=== PATIENT | male | born 1950 | race Caucasian/White ===

== ENCOUNTER → 2017-01-23 | Outpatient (CLI) | payer OTHER ==
[~2017-01-23] MED LIST: ACET-1138 PO; ACT30 PO; ASPI81TA28 PO; CHOL100010 PO; GLC5 PO; GLC500 PO; HYDR25TA4 PO; LISI-461 PO; MAGN400C2 PO; ONDA8TAB6 PO; OXYSR10 PO; POTA10CA28 PO; PROP80TA2 PO; RXC5 PO; SIMV20TA2 PO; SNK PO
[2017-01-23 16:59] LABS: ALT/SGPT 15 U/L (12-78); AST/SGOT 12 U/L (15-37); BLOOD UREA NITROGEN 24 mg/dl (7-18); BUN/CREATININE RATIO 24.2 (10-20); CALCIUM 9.3 mg/dl (8.5-10.1); CARBON DIOXIDE 30 mmol/L (21-32); CHLORIDE 103 mmol/L (98-107); CHOLESTEROL 142 mg/dl (0-200); GLUCOSE 78 mg/dl (70-99); POTASSIUM 4.3 mmol/L (3.5-5.1); SODIUM 140 mmol/L (136-145); TRIGLYCERIDES 134 mg/dl (0-150); VERY LOW DENSITY LIPOPROT CALC 27 mg/dl
[2017-01-23 17:00] LABS: ALB/GLOB RATIO 1.3 (0.9-2); ALKALINE PHOSPHATASE 69 U/L (45-117); CHOLESTEROL/HDL RATIO 3.4; HDL CHOLESTEROL 42 mg/dl; LDL CHOLESTEROL CALCULATED 73 mg/dl
[2017-01-24 05:44] LABS: ESTIMATED AVERAGE GLUCOSE 128 mg/dl; HA1C FLAG Normal (Normal)
== END | disposition home or self-care (01) ==
LOC: C.LABBFT 11:26
PROVIDERS: ATTEND Internal Medicine
DX: E78.00 Pure hypercholesterolemia, unspecified (principal); E11.9 Type 2 diabetes mellitus without complications; E87.6 Hypokalemia

== ENCOUNTER → 2017-08-05 | Outpatient (CLI) | payer OTHER ==
[~2017-08-05] MED LIST changes: -ONDA8TAB6 PO
[2017-08-05 17:41] LABS: BLOOD UREA NITROGEN 25 mg/dl (7-18); BUN/CREATININE RATIO 22.3 (10-20); CALCIUM 9.1 mg/dl (8.5-10.1); CARBON DIOXIDE 28 mmol/L (21-32); CHLORIDE 104 mmol/L (98-107); CREATININE 1.11 mg/dl (0.60-1.40); GLUCOSE 72 mg/dl (70-99); POTASSIUM 4.4 mmol/L (3.5-5.1); SODIUM 139 mmol/L (136-145)
[2017-08-06 05:53] LABS: ESTIMATED AVERAGE GLUCOSE 140 mg/dl; HA1C FLAG Normal (Normal)
== END | disposition home or self-care (01) ==
LOC: C.LABBFT 11:25
PROVIDERS: ATTEND Internal Medicine
DX: Z00.00 Encounter for general adult medical examination without abnormal findings (principal); E11.9 Type 2 diabetes mellitus without complications; I10 Essential (primary) hypertension; E87.6 Hypokalemia

== ENCOUNTER → 2018-02-15 | Outpatient (CLI) | payer OTHER | END | disposition home or self-care (01) | LOC: C.LABBFT 07:29 | PROVIDERS: ATTEND Internal Medicine | DX: Z00.00 Encounter for general adult medical examination without abnormal findings (principal); E78.00 Pure hypercholesterolemia, unspecified ==

== ENCOUNTER 2022-07-23 09:15 | Observation (INO) ==
--- NOTE | 2022-06-19 16:12 | PAT Medication Instructions ---
Medication Instructions Date of Service June 19, 2022 Home Medications Medication Instructions Recorded glipizide 10 mg tablet, extended 10 mg PO BID #180 tabs 11/01/20 release 24 hr metformin 1,000 mg tablet 1,000 mg PO BID #180 tabs 11/01/20 tamsulosin 0.4 mg capsule (Flomax) 0.4 mg PO QPM #90 caps 10/07/21 gabapentin 100 mg capsule 300 mg PO BID #540 caps 03/24/22 atorvastatin 40 mg tablet 40 mg PO HS cholecalciferol (vitamin D3) 125 mcg (5,000 unit) tablet (Vitamin D3) 5,000 unit PO HS magnesium oxide 400 mg PO HS acetaminophen 500 mg tablet (Tylenol Extra Strength) 1,000 mg PO BID mecobalamin (vitamin B12) 1,000 mcg chewable tablet 1,000 mcg PO QAM glipizide 10 mg tablet, extended release 24 hr 10 mg PO BID metformin 1,000 mg tablet 1,000 mg PO BID empagliflozin 25 mg tablet (Jardiance) 25 mg PO QAM aspirin 81 mg tablet,delayed release 81 mg PO HS finasteride 5 mg tablet 5 mg PO QAM lisinopril 10 mg tablet 5 mg PO HS metoprolol succinate 100 mg tablet,extended release 24 hr (Toprol XL) 100 mg PO QAM torsemide 20 mg tablet 20 mg PO QAM vit A 7,160 unit-vit C 113 mg-vit E 100 [id number] tablet 1 tab PO QAM tamsulosin 0.4 mg capsule (Flomax) 0.4 mg PO QPM gabapentin 100 mg capsule 300 mg PO BID STOP 3 days before surgery empagliflozin 25 mg tablet (Jardiance) 25 mg PO QAM STOP taking 2 weeks before surgery vit A 7,160 unit-vit C 113 mg-vit E 100 [id number]-[id number]-[id number] tablet 1 tab PO QAM DO NOT take the morning of surgery acetaminophen 500 mg tablet (Tylenol Extra Strength) 1,000 mg PO BID mecobalamin (vitamin B12) 1,000 mcg chewable tablet 1,000 mcg PO QAM glipizide 10 mg tablet, extended release 24 hr 10 mg PO BID metformin 1,000 mg tablet 1,000 mg PO BID torsemide 20 mg tablet 20 mg PO QAM Take morning of surgery With a small sip of water, OTHERWISE NOTHING TO EAT OR DRINK AFTER MIDNIGHT: finasteride 5 mg tablet 5 mg PO QAM metoprolol succinate 100 mg tablet,extended release 24 hr (Toprol XL) 100 mg PO QAM gabapentin 100 mg capsule 300 mg PO BID Take evening before surgery atorvastatin 40 mg tablet 40 mg PO HS cholecalciferol (vitamin D3) 125 mcg (5,000 unit) tablet (Vitamin D3) 5,000 unit PO HS magnesium oxide 400 mg PO HS acetaminophen 500 mg tablet (Tylenol Extra Strength) 1,000 mg PO BID glipizide 10 mg tablet, extended release 24 hr 10 mg PO BID metformin 1,000 mg tablet 1,000 mg PO BID aspirin 81 mg tablet,delayed release 81 mg PO HS (unless directed otherwise by surgeon) lisinopril 10 mg tablet 5 mg PO HS tamsulosin 0.4 mg capsule (Flomax) 0.4 mg PO QPM gabapentin 100 mg capsule 300 mg PO BID Other Notes If you have any questions please call us at [phone] or [phone] or [phone] or [phone]
--- NOTE | 2022-06-26 08:02 | History & Physical Report ---
Date of Service June 26, 2022 date of surgery: 07/23/22 Procedure: Left Total Knee Arthroplasty Surgeon: Ace Caraballo Assessment & Plan (1) Arthritis of knee, left: Plan: Presents for evaluation of continued left knee pain, he has had prior prior cortisone injection as well as viscosupplementation with minimal relief. He has a history of right knee replacement in [address] Cohn. We discussed treatment options and reviewed his x-rays which show advanced DJD, narrowing medial compartment patellofemoral joint, osteophyte formation subchondral sclerosis. He would like to proceed with scheduling for a patient matched [employer] [facility] left total knee replacement at [facility]. He will need cardiac clearance as well as medical clearance. We will schedule for Iovera treatment 2 weeks prior to his knee replacement The risks and benefits have been discussed including, but not limited to, risk of infection, nerve injury, stiffness, loss of motion, failure to improve, etc. Reasonable outcomes and options of treatment were discussed. An explanation of appropriate alternatives to the procedure that may be advantageous were discussed and their risks and benefits, as well as the risks and benefits of not proceeding with treatment. I offered to answer any additional inquiries concerning the treatment involved. All the patient's questions were answered. The patient is agreeable, understanding of the treatment plan and alternatives, and wishes to proceed with the treatment plan. History of Present Illness Chief Complaint: left knee pain Primary Care Provider: Meghana Hayes MD Naveen is a 71-year-old male who presents for preop evaluation prior to left total knee replacement at [facility]. Naveen has been having pain in his knee for many years now, is now affecting his daily activities. Is difficulty walking standing for prolonged period of times using stairs. He is tried oral anti-inflammatories and Tylenol without relief. He had previous cortisone injections as well as viscosupplementation without relief. He has a history of right knee replacement by Dr. Cohn several years ago. After discussing further care and failing conservative measures he would like to proceed with left total knee replacement Allergies Allergy/AdvReac Type Severity Reaction Status Date / Time quinine Allergy Intermediate "PETECHIAE" Verified 06/18/22 09:57 Home Medications Medication Instructions Recorded Confirmed Type atorvastatin 40 mg tablet 40 mg PO HS 09/07/18 06/18/22 History cholecalciferol (vitamin D3) 125 5,000 unit PO HS 09/07/18 06/18/22 History mcg (5,000 unit) tablet (Vitamin D3) magnesium oxide 400 mg PO HS 12/05/19 06/18/22 History acetaminophen 500 mg tablet 1,000 mg PO BID 12/21/19 06/18/22 History (Tylenol Extra Strength) mecobalamin (vitamin B12) 1,000 1,000 mcg PO QAM 06/19/20 06/18/22 History mcg chewable tablet glipizide 10 mg tablet, extended 10 mg PO BID #180 tabs 11/01/20 06/18/22 Rx release 24 hr metformin 1,000 mg tablet 1,000 mg PO BID #180 tabs 11/01/20 06/18/22 Rx empagliflozin 25 mg tablet 25 mg PO QAM 04/11/21 06/18/22 History (Jardiance) aspirin 81 mg tablet,delayed 81 mg PO HS 05/15/21 06/18/22 History release finasteride 5 mg tablet 5 mg PO QAM 05/15/21 06/18/22 History lisinopril 10 mg tablet 5 mg PO HS 05/15/21 06/18/22 History metoprolol succinate 100 mg 100 mg PO QAM 05/15/21 06/18/22 History tablet,extended release 24 hr (Toprol XL) torsemide 20 mg tablet 20 mg PO QAM 05/15/21 06/18/22 History vit A 7,160 unit-vit C 113 mg-vit 1 tab PO QAM 05/15/21 06/18/22 History E 100 [id number]-[id number] tablet tamsulosin 0.4 mg capsule (Flomax) 0.4 mg PO QPM #90 caps 10/07/21 06/18/22 Rx gabapentin 100 mg capsule 300 mg PO BID #540 caps 03/24/22 06/18/22 Rx Past Med/Surg History Medical History Chronic 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 Silverman---pt states he has 2 aneurysms at this time > last checked April 10 at [facility] > 4.5cm and 4.8cm per pt report Tinnitus of both ears Type 2 diabetes mellitus NIDDM Surgical History History of AAA (abdominal aortic aneurysm) repair (2012) @ [facility] [place] 2012 History of bilateral cataract extraction x2 on both History of colonoscopy History of hernia surgery (~2011) umbilical History of tonsillectomy and adenoidectomy History of tooth extraction Status post Mohs surgery ear and neck Status post ORIF of fracture of ankle left--hardware in place Status post right knee replacement Family History Mother Diabetes Breast cancer Other No family history of adverse response to anesthesia No pertinent family history in first degree relatives Social History Smoking Status: Former smoker Second Hand Exposure: No; Hx Alcohol Use: No Hx Substance Use: No Preferred Language: Romansh Communication Ability: Effective Visual Impairment: No Limitations Bottle House Quality Control Technician Required: No Beliefs That Will Affect Care: None marital status: Current Living Situation: Spouse Feels Safe at Home: Yes Diet Comment: Low sugar caffeine: Yes Seatbelt Use: always Sunscreen Use: Yes (Prolonged sun exposure ) Assistive Devices: Cane, Denture - Upper, Denture - Lower and Glasses Review of Systems Review of Systems: All systems reviewed & are unremarkable except as noted in HPI & below Constitutional: no fever, no chills and no sweats Respiratory: no cough and no dyspnea Cardiovascular: no chest pain, no dyspnea and no orthopnea Gastrointestinal: no abdominal pain, no nausea and no vomiting Musculoskeletal: as per Subjective / HPI Physical Exam Physical Exam: HT: 5ft 9in WT: 118.8kg Constitutional: WD/WN, vitals as above no acute distress Respiratory: normal respiratory effort, lungs clear to auscultation no respiratory distress, no labored breathing and does not use accessory muscles Cardiovascular: RRR, no murmur, no edema Gastrointestinal (Abdomen): normal bowel sounds, soft, nontender, no hepatosplenomegaly Musculoskeletal: Knee: + knee abnormal to inspection (LEFT KNEE: ), + effusion (+1 effusion), + limited ROM of knee (ROM 0/3/110), + knee ROM with crepitation, + joint line tenderness (medial joint line) and + Herber's sign positive; no deformity, no skin erythema, no ecchymosis, no valgus laxity, no varus laxity, anterior drawer test negative, Brian's sign negative and pivot shift test negative Results & Data Results & Data ([facility]) Diagnostic Findings Left Knee X-ray: left knee series confirm advanced degenerative changes to the left knee, greatest medial compartments and patellofemoral joint, showing joint space narrowing, osteophyte formation and subchondral sclerosis. no acute bony pathology noted.
--- NOTE | 2022-06-26 12:06 | Anesthesiology Consultation ---
Date of Service June 26, 2022 Assessment & Plan (1) Encounter for pre-operative examination: - check BSG am DOS. - cardiology 06/06/22: "...doing well...scheduled to undergo knee surgery...aortic root and ascending thoracic aortic aneurysm. Diastolic dysfunction. Pulmonary hypertension...history of AAA, status post repair, following with vascular surgery...no further cardiac testing intervention is necessary at this time...did have a slight change of his EKG with an incomplete RBBB now becoming complete so I would like to obtain a 2D echocardiogram...otherwise, he is on a very good medical regimen and no changes will be made today...in terms of preop risk assessment...place him as a moderate risk for any adverse perioperative cardiovascular events with his risk being approximately less than 5%...no further cardiac testing or intervention would further lower that risk...they understand, they are accepting that risk and wished to proceed...no need to delay from a cardiac standpoint..." - Outpatient joint assessment: Patient is currently scheduled for inpatient path way. If re-evaluated pending system levels during current pandemic/surgeon requests outpatient pathway, patient is not recommended candidate for outpatient joint program from anesthesia standpoint. - COVID screening: Per assessment on 06/26/2022: Travel screen negative. Pt vaccinated. To surgeon's discretion if preop COVID testing needed. Chart Review Chart Review: Acceptable Risk for Surgery and Patient seen in Pre Admission Testing Teaching & Discussion Pre-Anesthesia Teaching/Discussion Notes: Instructed NPO after midnight before surgery, except medications with 15 cc of water. Medication instructions provided according to the PAT guidelines. History Surgery Operation Date: 07/23/22 11:45 Proposed Procedures p Left Total Knee Arthroplasty - Ace Caraballo DO Height/Weight Height: 5 ft 9 in Weight: 117.6 kg Allergies Allergy/AdvReac Type Severity Reaction Status Date / Time quinine Allergy Intermediate "PETECHIAE" Verified 06/18/22 09:57 Medications Home Medications Medication Instructions Recorded Confirmed Last Taken atorvastatin 40 mg tablet 40 mg PO HS 09/07/18 06/18/22 05/20/21 18:00 cholecalciferol (vitamin D3) 125 5,000 unit PO HS 09/07/18 06/18/22 05/20/21 18:00 mcg (5,000 unit) tablet (Vitamin D3) magnesium oxide 400 mg PO 12/05/19 06/18/22 05/20/21 18:00 acetaminophen 500 mg tablet 1,000 mg PO BID 12/21/19 06/18/22 05/20/21 18:00 (Tylenol Extra Strength) mecobalamin (vitamin B12) 1,000 1,000 mcg PO [facility] 06/19/20 06/18/22 05/20/21 07:00 mcg chewable tablet glipizide 10 mg tablet, extended 10 mg PO BID #180 tabs 11/01/20 06/18/22 05/19/21 18:00 release 24 hr metformin 1,000 mg tablet 1,000 mg PO BID #180 tabs 11/01/20 06/18/22 05/20/21 18:00 empagliflozin 25 mg tablet 25 mg PO [facility] 04/11/21 06/18/22 05/20/21 18:00 (Jardiance) aspirin 81 mg tablet,delayed 81 mg PO 05/15/21 06/18/22 05/19/21 18:00 release finasteride 5 mg tablet 5 mg PO [facility] 05/15/21 06/18/22 05/20/21 18:00 lisinopril 10 mg tablet 5 mg PO 05/15/21 06/18/22 05/20/21 18:00 metoprolol succinate 100 mg 100 mg PO [facility] 05/15/21 06/18/22 05/20/21 07:00 tablet,extended release 24 hr (Toprol XL) torsemide 20 mg tablet 20 mg PO [facility] 05/15/21 06/18/22 05/20/21 07:00 vit A 7,160 unit-vit C 113 mg-vit 1 tab PO [facility] 05/15/21 06/18/22 05/20/21 07:00 E 100 [id number] tablet tamsulosin 0.4 mg capsule (Flomax) 0.4 mg PO QPM #90 caps 10/07/21 06/18/22 Unknown gabapentin 100 mg capsule 300 mg PO BID #540 caps 03/24/22 06/18/22 Unknown Past Medical History Medical History (Updated 06/27/22 @ 10:28 by Anu Strange PA-C) Chronic knee pain after total replacement of right knee joint Diastolic dysfunction EF 55-60%, Grade I diastolic dysfunction History of blood transfusion 2012, during AAA HTN (hypertension) controlled, stable per pt Hyperlipidemia Lower urinary tract symptoms (LUTS) Lumbar radiculopathy Morbid obesity with BMI of 40.0-44.9, adult Obstructive sleep apnea did not tolerate CPAP Pulmonary HTN not noted on most recent echo Thoracic ascending aortic aneurysm per pt follows with Dr. Silverman---pt states he has 2 aneurysms at this time > last checked April 10 at [facility] > 4.5cm and 4.8cm per pt report Tinnitus of both ears Type 2 diabetes mellitus NIDDM Patient denies h/o stroke, seizures, heart attack or blood clots. Exercise / Class Metabolic Activity II 4-5 Yardwork/Stairs/Walk up hill (denies CP or SOB with 1 FOS) Past Family History Family History Mother Diabetes Breast cancer Other No family history of adverse response to anesthesia No pertinent family history in first degree relatives Past Surgical History Surgical History (Updated 06/26/22 @ 12:19 by Anu Strange PA-C) History of AAA (abdominal aortic aneurysm) repair (2012) @ [facility] [place] History of bilateral cataract extraction x2 on both History of colonoscopy History of hernia surgery (~2011) umbilical History of tonsillectomy and adenoidectomy History of tooth extraction Status post Mohs surgery L ear and neck Status post ORIF of fracture of ankle left--hardware in place Status post right knee replacement Past Anesthesia History No Hx of Anesthesia Complications and No Family Hx of Anesthesia Complications History of PONV No Hx of PONV and No Hx of Motion Sickness Social History Smoking Status: Former smoker Do You Dip or Chew Tobacco: No Smoking End Date: 34 yrs ago Hx Alcohol Use: No Alcohol Intake Frequency Comment: quit 34 yrs ago Hx Substance Use: No substance use type: does not use Review of Systems Patient denies chest pain, shortness of breath, dyspnea on exertion, reflux, fever, chills, cough, wheezing, or palpitations. Physical Exam Vital Signs Vitals BP 123/73 P 65 TEMP 98.3 SP02 97% on RA RESP 28 Physical Full cervical extension range of motion without pain TMD 3.5 finger breadths Mallampati Score 3 Dentition: intact, several chipped teeth through; two partials upper and lower; denies loose teeth or implants Lungs: normal respiratory effort. Clear throughout to auscultation, no episcopalian itious breath sounds Cardiac: regular rate and rhythm, no murmurs noted Carotid arteries: negative bruit bilat Lab Results Anesthesia Preop Results Results Anesthesia Widget: WBC 6.15 K/ul (4.8-10.8) 06/26/22 Hgb 15.0 g/dl (14.0-18.0) 06/26/22 Hct 46.8 % (40.1-51.0) 06/26/22 Plt 156 K/uL (130-400) 06/26/22 Na 139 mmol/L (136-145) 06/26/22 K 4.1 mmol/L (3.5-5.1) 06/26/22 Cl 102 mmol/L (98-107) 06/26/22 CO2 29 mmol/L (21-32) 06/26/22 BUN 25 mg/dl (6-23) H 06/26/22 Creat 1.17 mg/dl (0.6-1.4) 06/26/22 Glucose Level 104 mg/dl (70-99(Fasting)) H 06/26/22 PT 13.5 Seconds (9.0-12.0) H 06/26/22 PTT 26.9 Seconds (21.0-31.0) 06/26/22 INR 1.3 (0.9-1.1) H 06/26/22 HA1c 7.5 % (4.5-5.6) H 06/26/22 Urine Color Yellow 06/26/22 Urine Appearance Clear (Clear) 06/26/22 Urine pH 5.0 (4.5-7.5) 06/26/22 Urine Specific [place] 1.016 (1.000-1.030) 06/26/22 Urine Protein Negative (Negative) 06/26/22 Urine Glucose (UA) 3+ (Negative) H 06/26/22 Urine Ketones Negative (Negative) 06/26/22 Urine Blood Negative (Negative) 06/26/22 Urine Nitrite Negative (Negative) 06/26/22 Urine Bilirubin Negative (Negative) 06/26/22 Urine Urobilinogen Negative (Negative) 06/26/22 Urine Leukocyte Esterase 2+ (Negative) H 06/26/22 Urine WBC (Auto) 5-10 /hpf (0-5) H 06/26/22 Urine RBC (Auto) 0-4 /hpf (0-4) 06/26/22 Urine Hyaline Casts (Auto) 1-5 /lpf (0-5) 06/26/22 Urine Epithelial Cells (Auto) 5-10 /lpf (0-5) H 06/26/22 Urine Bacteria (Auto) Negative (Negative) 06/26/22 Blood Type O Positive 06/26/22 Antibody Screen NEGATIVE 06/26/22 Testing Electrocardiogram Date: 04/02/22 Sinus rhythm with 1st degree AV block, rate 61 bpm RBBB Left anterior fascicular block Bifascicular block Cannot rule out anterior infarct, age undetermined When compared with 02/04/21 ECG, RBBB has replaced incomplete RBBB Chest X-Ray Date: 06/26/22 PA and lateral chest radiographs are compared to study dated 09/04/2015 and correlated with chest CT dated 09/05/2016. The heart is enlarged noting atherosclerotic calcification of the thoracic aorta. The pulmonary vasculature is noncongested. Chronic interstitial thickening is similar to previous. There are low lung volumes with bibasilar scarring/atelectasis. No airspace consolidation or pleural effusion is identified. There is no pneumothorax. The skeletal structures are osteopenic. The bony thorax appears intact. Degenerative change is noted in the spine. IMPRESSION: Cardiomegaly with no active disease in the chest. Echocardiogram Date: 06/20/22 EF 60-64% Mild cLVH Mild aortic valve sclerosis Aortic root moderately enlarged 4.6 cm Ascending aorta mildly enlarged 4.4 cm Grade I diastolic dysfunction Mild pulmonary regurgitation Stress Test Date: 01/21/21 Dobutamine Negative for inducible ischemia EF 55-60% No LV wall motion abnormality Grade I diastolic dysfunction No significant valvular pathology Moderate enlargement of the aortic root and ascending aorta measuring 4.7 and 4.5 cm
[~2022-07-23 09:15] MED LIST changes: -ACET-1138 PO; +ACETAMINOPHEN 500 MG TAB PO SCH; -ACT30 PO; -ASPI81TA28 PO; +BUPIVACAINE 0.5 % 5 MG/1 ML PF 10ML VIAL ONE; -CHOL100010 PO; +CeleBREX 200 MG CAP PO SCH; +EPINEPHrine INJ 1 MG/ML AMP ONE; +FAMOTIDINE 20 MG TAB PO SCH; +GABAPENTIN 300 MG CAP PO SCH; -GLC5 PO; -GLC500 PO; -HYDR25TA4 PO; -LISI-461 PO; +LR 500ML BOLUS, THEN 15ML/HR IV SCH; -MAGN400C2 PO; +METOCLOPRAMIDE HCL 10 MG TABLET PO SCH; -OXYSR10 PO; -POTA10CA28 PO; -PROP80TA2 PO; +ROPIVACAINE 0.5% 5 MG/ML 30 ML VIAL ONE; +ROPIVACAINE 0.5% HCL/PF 150 MG, BUPIVACAINE 0.75% MPF 20 ML, EPINEPHrine 30MG/30ML (OR ... INSTIL SCH; -RXC5 PO; -SIMV20TA2 PO; -SNK PO; +ceFAZolin 2000MG 2,000 MG/15 ML SYR IV SCH; +dexAMETHasone 4 MG TAB PO SCH
--- NOTE | 2022-07-23 10:14 | History & Physical Bridge Note ---
Date of Service July 23, 2022 History & Physical Bridge Note I have examined the patient, reviewed the History & Physical and in the interval since the performance of the History & Physical I have noted the following changes of clinical significance: no changes noted
[2022-07-23] MEDS ORDERED: TRANEXAMIC ACID / 0.7% NACL 1,000 MG/100 ML BAG IV ONE ×2 (10:36)
[2022-07-23] MEDS ORDERED: ORTHO JOINT ANESTHETIC ONE (10:48)
[2022-07-23] MEDS ORDERED: LIDOCAINE 2% MPF LOCAL 5 ML VIAL INFIL ONE (10:53)
[2022-07-23] MEDS ORDERED: fentaNYL citrate 100 MCG/2 ML VIAL ONE (10:53)
[2022-07-23] MEDS ORDERED: MIDAZOLAM HCL 1 MG/ML 2ML VIAL ONE (10:53)
[2022-07-23] MEDS ORDERED: PROPOFOL IV EMULSION 10 MG/ML 20 ML VIAL IV ONE ×2 (10:53→12:00)
[2022-07-23] MEDS ORDERED: ATROPINE SULFATE 0.1 MG/ML 10ML SYR IV PRN (11:36)
[2022-07-23] MEDS ORDERED: fentaNYL citrate 100 MCG/2 ML VIAL IV PRN (11:36)
[2022-07-23] MEDS ORDERED: NALOXONE HCL 0.4 MG/1 ML VIAL/CARP IV PRN ×2 (11:36→14:32)
[2022-07-23] MEDS ORDERED: ePHEDrine sulfate 50 MG/ML AMP IV PRN (11:36)
[2022-07-23] MEDS ORDERED: ONDANSETRON INJ 2 MG/ML 2 ML VIAL IV PRN ×2 (11:36→14:32)
[2022-07-23] MEDS ORDERED: HYDROmorphone INJ 1 MG/ML SYRINGE IV PRN (11:36)
[2022-07-23] MEDS ORDERED: FLUMAZENIL 0.1 MG/1 ML 10 ML VIAL IV PRN (11:36)
[2022-07-23] MEDS ORDERED: PROMETHAZINE HCL 12.5 MG in SODIUM CHLORIDE 0.9% 50 ML IV PRN (11:36)
--- NOTE | 2022-07-23 12:43 | Operative Report ---
Post Operative Report Pre & Post Diagnosis Operation Date: 07/23/22 11:40 Pre-Op Diagnosis: Left Knee Degenerative Joint Disease Post-Op Diagnosis: Left Knee Degenerative Joint Disease I identified the patient and participated in the time-out.: Yes Procedure Operation Date: 07/23/22 11:40 Actual Procedures utilizing [employer] michelle 2 patient matched total knee a rthroplasty size femur 8 tibia 7 polytwelve patella 35 oval p Left Total Knee Arthroplasty(Left) - Ace Caraballo DO Surgeon Ace Caraballo DO Tandem Operator German ROB Estimated Blood Loss 5 Findings Consistent with Post-Op Diagnosis Patient presents with severe end-stage tricompartmental degenerative joint disease left knee eburnated [id number] subchondral cystic changes marginal osteophytes with a moderate to large effusion Specimens Bone and cartilage Drains Medium bore Hemovac Anesthesia Type MAC Spinal Regional Complications none Disposition Accompanied Patient To Recovery: No Disposition: Recovery Room Indications Patient presents with severe end-stage tricompartmental degenerative joint disease no response to conservative management patient failed attempted corticosteroid injection viscosupplementation relative rest activity modification above intraoperative findings were noted Description of Procedure After proper prepping and draping of the left lower extremity anterior midline incision was made over the region of the extensor extensor mechanism after meticulous hemostasis was obtained and maintained in subcutaneous tissues a medial parapatellar incision was made The patella was subluxed lateralward the medial lateral gutter were cleaned from any hypertrophic synovitis and scar tis ariane of the distal femoral block was placed and the distal femoral osteotomy cut was made subsequently the chamfers anterior and posterior osteotomy cuts were made utilizing the 4-in-1 block the tibia was subsequently subluxed anteriorward medial and ateral meniscal remnants were excised in their entirety remnants of the anterior and posterior cruciate ligaments were excised in their entirety excellent exposure of the proximal tibia was obtained the tibial osteotomy guide was placed on the proximal tibial osteotomy cut was made once again the knee was irrigated with copious amounts of sterile saline solution the patella was subsequently everted lateralward thickened scar tissue around the patella was removed the patella was subsequently cut utilizing a freehand technique and was drilled prepared for final preparation and placement of patella socially flexion-extension gaps were checked and the equal and symmetric trials were placed to the appropriate femoral and tibial trials with poly-spacer being placed for equal flexion and extension gaps and full range of motion including extension to 0 and flexion to 140 the trial components after having been taken to recovery range of motion was subsequently removed meticulous hemostasis was obtained and maintained subsequently a knee block injection of joint cocktail including ropivacaine 0.5% 150 mg. Bupivacaine 0.5% epinephrine 1-200,030 mL's toradol 30 mg dexamethasone 4 mg ketamine 10 mg clonidine 100 micrograms normal saline solution 30 mg was infiltrated into the soft tissues of the posterior knee medial lateral gutters and periosteal synovium special attention was paid to protect neurovascular structures at all times subsequently trial components having been removed the knee was irrigated with sterile saline solution. debris was removed the proximal tibia was subsequently prepared and was made ready for the placement of the tibial component tibial component was also cemented and tamped into position the femoral component was subsequently placed and cemented in the position the patellar component was subsequently cemented in position because hemostasis once again obtained and maintained wound having been thoroughly irrigated with debridement and debridement lavage was performed as well as a medial parapatellar incision closed with #1 Vicryl in interrupted fashion subcutaneous was closed with #2 Vicryl skin was closed with skin clips. PA-C was necessary for prepping and drapping as well as wound closure of deep fascia Sub cutaneous tissue and skin and was necessary for the case. A sterile compressive dressing was placed patient was taken to recovery in stable condition of report dictated by Ilya I attest to the content of the Intraoperative Record and any orders documented therein. Any exceptions are noted below.Due to the complex nature of the procedure, the entire surgery was performed with the operational assistance of German ROB. The orthotics assistant, under direct supervision, was involved in the actual performance of all aspects of the surgical procedure including hemostasis, tissue retraction and incision, instrument management, patient positioning, and wound closure. I attest to the content of the Intraoperative Record and any orders documented therein. Any exceptions are noted below.
--- NOTE | 2022-07-23 13:56 | XRay Report ---
LEFT KNEE 2 VIEWS History: Left total knee arthroplasty. Degenerative arthritis. Postop. FINDINGS: The patient is status post a left total knee arthroplasty. The hardware is intact. No fract ure or dislocation. Skin mango and surgical drains are in place. IMPRESSION: Left total knee arthroplasty. No evidence for hardware complication. ACT 112: Negative or not required by law. Electronically signed by: Josué Bueno M.D. 07/23/2022 1:55 PM
--- NOTE | 2022-07-23 14:07 | Anesthesiology Progress Note ---
Date of Service July 23, 2022 Anesthesia Post Procedure Vital Signs Vital Signs: Temp Pulse Pulse Resp BP Pulse Ox O2 Del Method 07/23/22 13:20 36.8 C 62 16 112/64 98 Oxymask 07/23/22 09:47 36.9 C 60 18 177/87 H 96 Room Air O2 Flow Rate 07/23/22 13:20 5 07/23/22 09:47 Pain Intensity Left Knee: Pain Intensity: 5 Transfer of Care Handoff Completed per policy Notes Mental Status: alert / awake / arousable Patient Amnestic to Procedure: Yes Nausea / Vomiting: adequately controlled Pain: adequately controlled Airway Patency, RR, SpO2: stable & adequate BP & HR: stable & adequate Hydration State: stable & adequate Neuraxial Anesthesia: was administered and sensory block is resolving Anesthetic Complications: no major complications apparent
[2022-07-23] MEDS ORDERED: diphenhydrAMINE 50 MG/ML VIAL IV PRN (14:32)
[2022-07-23] MEDS ORDERED: MAGNESIUM HYDROXIDE SUSP 30 ML UDC PO PRN (14:32)
[2022-07-23] MEDS ORDERED: HYDROmorphone INJ 0.5 MG/0.5 ML SYR IV PRN (14:32)
[2022-07-23] MEDS ORDERED: bisacodyL 10 MG SUPP PR PRN (14:32)
[2022-07-23] MEDS ORDERED: oxyCODONE HCL IR 5 MG TAB (IMMEDIATE RELEASE) PO PRN (14:32)
[2022-07-23] MEDS: ACETAMINOPHEN 500 MG TAB PO SCH (15:46)
[2022-07-23] MEDS: SODIUM CHLORIDE 0.9% 1000ML 1,000 ML IV SCH (17:18)
[2022-07-23] MEDS: glipiZIDE ER 2.5 MG TABCR PO SCH (17:19)
[2022-07-23] MEDS: metFORMIN HCL 500 MG TAB PO SCH (17:19)
--- NOTE | 2022-07-23 18:58 | Hospitalist Consultation ---
Date of Consultation July 23, 2022 Assessment & Plan (1) Status post total left knee replacement: -Patient is currently Post-op day #0 S/P left total knee arthropathy -No reported complications and EBL of 5 mL -Currently afebrile, hemodynamically stable, and stable on room air -Monitor closely while on IV fluids to avoid volume overload -Pain control, DVT PPX, IV fluids, and antibiotics per the primary team -FU on am CBC and BMP already ordered to ensure Hgb and renal function are stable (2) HTN (hypertension): -Hemodynamically stable -Would hold lisinopril and metoprolol until tomorrow to ensure he remains hemodynamically stable (3) Type 2 diabetes mellitus: -Patient usually on metformin and Glipizide at home -Both oral meds were already ordered and given prior to the consult -Will continue both for now, will add on a correction factor of 35 and monitor blood glucose ACHS, hypoglycemia orders added (4) Hyperlipidemia: -Continue Atorvastatin (5) Vitamin D deficiency: -Contiue vitamin D (6) Diastolic dysfunction: -Appears Euvolemic on exam -Can continue home torsemide -Monitor AM renal function (7) CAD (coronary artery disease): -Continue aspirin as ordered (8) Obstructive sleep apnea: -Does not tolerate CPAP Plan The patient was discussed with Dr. Isabel at the time of the consult History of Present Illness Reason for Consultation: Post-Op Medical management Requesting Physician: Ace Caraballo DO Attending Physician: Dr. Josr Hernandez History of Present Illness Naveen is 71 year old male with a PMH significant DM II, JOSÉ MIGUEL, HTN, Hyperlipidemia, obesity, pulmonary HTN, Grade I diastolic dysfunction, and chronic insufficiency who presented to the [facility] OR today for elective left total knee arthropathy. Per the post-op note, the patient had no reported intraoperative complications and EBL was approximately 5 mL, Anesthesia is listed as MAC Spinal Regional. At the time of the exam the patient was resting comfortably in bed in no acute distress. He states that he is feeling good post-op, his left knee pain is currently a 3/10. He recently at dinner without issue and has been able to void. He told me he was already given his oral antihyperglycemics shortly after dinner. He explained that he tried to use a CPAP machine for over a year with multiple different masks but was unable to tolerate them. Allergies Allergy/AdvReac Type Severity Reaction Status Date / Time quinine Allergy Intermediate "PETECHIAE" Verified 07/23/22 09:42 Home Medications Medication Instructions Recorded Confirmed Type atorvastatin 40 mg tablet 40 mg PO HS 09/07/18 07/23/22 History cholecalciferol (vitamin D3) 125 5,000 unit PO HS 09/07/18 07/23/22 History mcg (5,000 unit) tablet (Vitamin D3) magnesium oxide 400 mg PO HS 12/05/19 07/23/22 History acetaminophen 500 mg tablet 1,000 mg PO BID 12/21/19 07/23/22 History (Tylenol Extra Strength) mecobalamin (vitamin B12) 1,000 1,000 mcg PO QAM 06/19/20 07/23/22 History mcg chewable tablet glipizide 10 mg tablet, extended 10 mg PO BID #180 tabs 11/01/20 07/23/22 Rx release 24 hr metformin 1,000 mg tablet 1,000 mg PO BID #180 tabs 11/01/20 07/23/22 Rx empagliflozin 25 mg tablet 25 mg PO [facility] 04/11/21 07/23/22 History (Jardiance) aspirin 81 mg tablet,delayed 81 mg PO HS 05/15/21 07/23/22 History release finasteride 5 mg tablet 5 mg PO [facility] 05/15/21 07/23/22 History lisinopril 10 mg tablet 5 mg PO HS 05/15/21 07/23/22 History metoprolol succinate 100 mg 100 mg PO QA 05/15/21 07/23/22 History tablet,extended release 24 hr (Toprol XL) torsemide 20 mg tablet 20 mg PO [facility] 05/15/21 07/23/22 History vit A 7,160 unit-vit C 113 mg-vit 1 tab PO [facility] 05/15/21 07/23/22 History E 100 kohz-mnje-jjobxi tablet tamsulosin 0.4 mg capsule (Flomax) 0.4 mg PO QPM #90 caps 10/07/21 07/23/22 Rx gabapentin 100 mg capsule 300 mg PO BID #540 caps 03/24/22 07/23/22 Rx Patient History Medical History (Updated 07/23/22 @ 19:40 by Kan M. Peno, PA-C) Chronic knee pain after total replacement of right knee joint Diastolic dysfunction EF 55-60%, Grade I diastolic dysfunction History of blood transfusion 2012, during AAA HTN (hypertension) controlled, stable per pt Hyperlipidemia Lower urinary tract symptoms (LUTS) Lumbar radiculopathy Morbid obesity with BMI of 40.0-44.9, adult Obstructive sleep apnea did not tolerate CPAP Pulmonary HTN not noted on most recent echo Thoracic ascending aortic aneurysm per pt follows with Dr. Silverman---pt states he has 2 aneurysms at this time > last checked April 10 at [facility] > 4.5cm and 4.8cm per pt report Tinnitus of both ears Type 2 diabetes mellitus NIDDM Surgical History (Updated 07/23/22 @ 19:18 by Kan Graham PA-C) History of AAA (abdominal aortic aneurysm) repair (2012) @ [facility] [place] 2012 History of bilateral cataract extraction x2 on both History of colonoscopy History of hernia surgery (~2011) umbilical History of tonsillectomy and adenoidectomy History of tooth extraction Status post Mohs surgery L ear and neck Status post ORIF of fracture of ankle left--hardware in place Status post right knee replacement Family History Mother Diabetes Breast cancer Other No family history of adverse response to anesthesia No pertinent family history in first degree relatives Social History Smoking Status: Former smoker Smoking End Date: 34 yrs ago; Second Hand Exposure: No; Do You Dip or Chew Tobacco: No; Tobacco Cessation Education Requested by Patient: No Hx Alcohol Use: No (quit 30+yrs ago) Hx Substance Use: No Preferred Language: Urdu Communication Ability: Effective Visual Impairment: No Limitations Concrete Journeyman Required: No Beliefs That Will Affect Care: None marital status: Current Living Situation: Spouse Other Information That Helps Us Care for You: No Feels Safe at Home: Yes Safety Concerns: Feels Safe At This Time Diet Comment: Low sugar caffeine: Yes Seatbelt Use: always Sunscreen Use: Yes (Prolonged sun exposure ) Assistive Devices: Denture - Upper, Denture - Lower and Glasses Review of Systems Review of Systems: Denies current fever, chills, headache, changes in vision, hearing, taste, and smell, chest pain, SOB, cough, abdominal pain, nausea, vomiting, diarrhea, hematemesis, melena, dysuria, hematuria, and recent falls. All systems have been reviewed and are otherwise negative. Physical Exam Physical Exam: Physical Exam: General: In no acute distress, stated age, well-nourished, good hygiene HEENT: Normocephalic, atraumatic, no scleral icterus, pupils around round, symmetrical, and reactive to light, moist mucus membranes, trachea midline, no thyromegaly Chest/Pulm: No respiratory distress, symmetrical chest expansion, clear breath sounds throughout Cardiac: RRR, no murmurs noted Abdomen: Negative for ascites and bruising, normoactive bowel sounds, soft, non-tender to palpation throughout Musculoskeletal: patient with left lower extremity currently wrapped and with SCD in place, has intact motor function, sensation, and cap refill in the BL lower extremities Extremities: Radial, dorsalis pedis, and posterior tibial pulses are intact and symmetrical, no edema noted in the BL LE's Skin: Warm, dry, no rashes , lesions, or scars noted Neuro: Alert and oriented to person, place, month, year, and president, no focal defects, CN II-XII tested and intact, finger to nose test negative, no tremors noted Psych: No acute distress, calm and cooperative during the exam Results & Data Results & Data ([facility]) Vital Signs (Past 12 Hours) Vital Signs Temp Pulse Pulse Resp BP Pulse Ox O2 Del Method 07/23/22 18:00 36.8 C 76 18 130/66 97 Room Air 07/23/22 17:00 37 C 62 18 145/74 H 96 Room Air 07/23/22 15:30 37.0 C 58 L 15 135/69 94 Room Air 07/23/22 16:00 37.0 C 63 25 H 144/70 H 94 Room Air 07/23/22 15:15 37.0 C 60 19 144/79 H 96 Room Air 07/23/22 15:00 37.0 C 61 16 140/81 95 Room Air 07/23/22 14:45 37.0 C 58 L 16 147/83 H 95 Room Air 07/23/22 14:30 37.0 C 58 L 19 143/68 H 95 Room Air 07/23/22 14:10 37.0 C 60 17 143/71 H 96 Room Air 07/23/22 14:00 57 L 21 131/71 94 Room Air 07/23/22 13:50 55 L 19 128/64 97 Oxymask 07/23/22 13:40 56 L 20 123/62 97 Oxymask 07/23/22 14:20 37.0 C 59 L 23 148/73 H 96 Room Air 07/23/22 13:30 59 L 17 118/66 97 Oxymask 07/23/22 13:20 36.8 C 62 16 112/64 98 Oxymask 07/23/22 09:47 36.9 C 60 18 177/87 H 96 Room Air O2 Flow Rate 07/23/22 18:00 07/23/22 17:00 07/23/22 15:30 07/23/22 16:00 07/23/22 15:15 07/23/22 15:00 07/23/22 14:45 07/23/22 14:30 07/23/22 14:10 07/23/22 14:00 07/23/22 13:50 2 07/23/22 13:40 3 07/23/22 14:20 07/23/22 13:30 4 07/23/22 13:20 5 07/23/22 09:47 Laboratory Results Abnormal lab results 07/23/22 07/23/22 Range/Units 10:24 13:25 POC Glucose 134 H 145 H (70-99) mg/dl Diagnostic Findings Knee X-Ray 07/23/22 13:38 LEFT KNEE 2 VIEWS History: Left total knee arthroplasty. Degenerative arthritis. Postop. FINDINGS: The patient is status post a left total knee arthroplasty. The hardware is intact. No fracture or dislocation. Skin mango and surgical drains are in place. IMPRESSION: Left total knee arthroplasty. No evidence for hardware complication. ACT 112: Negative or not required by law. Electronically signed by: Josué Bueno M.D. 07/23/2022 1:55 PM ECG Additional Comments: No ECG at the time of the consult PG Care Time/CCT Total # of Minutes Spent Total Time Spent with Patient: Total time spent is greater than 50% in coordination of care (as documented) at patient's floor/unit and/or counseling patient: Coding [place] [address] Office/OBS Consult Lvl 3 Patient Type Established History Detailed Exam Detailed Medical Decision Making Moderate Complexity Diagnoses Status post total left knee replacement Z96.652 HTN (hypertension) I10 Hypertension type: essential hypertension Type 2 diabetes mellitus E11.9 Hyperlipidemia E78.5 Vitamin D deficiency E55.9 Diastolic dysfunction I51.89 CAD (coronary artery disease) I25.10 Obstructive sleep apnea G47.33 (1) HTN (hypertension) Hypertension type: essential hypertension Qualified Code(s): I10 - Essential (primary) hypertension
[2022-07-23] MEDS ORDERED: GLUCAGON FOR INJ 1 MG VIAL SQ PRN (19:11)
[2022-07-23] MEDS ORDERED: GLUCOSE 10 TAB/TUBE PO PRN (19:11)
[2022-07-23] MEDS ORDERED: CARBOHYDRATES FOR HYPOGLYCEMIA PO PRN (19:11)
[2022-07-23] MEDS ORDERED: DEXTROSE 50% 50 ML SYRINGE IV PRN (19:11)
[2022-07-23] MEDS ORDERED: GLUCOSE 40% GEL 15 GM TUBE PO PRN (19:11)
[2022-07-23] MEDS: DOCUSATE SODIUM 100 MG CAP PO SCH (20:38)
[2022-07-23] MEDS: GABAPENTIN 300 MG CAP PO SCH (20:38)
[2022-07-23] MEDS: ASPIRIN 81 MG ECTAB PO SCH (20:39)
[2022-07-23] MEDS: ceFAZolin 2000MG 2,000 MG/15 ML SYR IV SCH (20:39)
[2022-07-23] MEDS ORDERED: SENNA 8.6 MG TAB PO SCH (21:00)
[2022-07-23] MEDS ORDERED: ATORVASTATIN 40 MG TAB PO SCH (21:00)
[2022-07-23] MEDS ORDERED: MAGNESIUM OXIDE 400 MG TAB PO SCH (21:00)
[2022-07-23] MEDS ORDERED: lisinopril 5 MG TAB PO SCH (21:00)
[2022-07-23] MEDS ORDERED: CHOLECALCIFEROL 5,000 UNITS 125 MCG TAB PO SCH (21:00)
[2022-07-23] MEDS ORDERED: TAMSULOSIN HCL 0.4 MG CAP PO SCH (21:00)
[2022-07-23] MEDS: INSULIN ASPART PER UNIT SC SCH (22:31)
[2022-07-24] MEDS: ACETAMINOPHEN 500 MG TAB PO SCH ×2 (00:03→08:02)
[2022-07-24] MEDS: SODIUM CHLORIDE 0.9% 1000ML 1,000 ML IV SCH (04:42)
[2022-07-24] MEDS: ceFAZolin 2000MG 2,000 MG/15 ML SYR IV SCH (04:42)
[2022-07-24 06:47] LABS: Hematocrit (blood only) 39.8 % (40.1-51.0); Hemoglobin 13.2 g/dl (14.0-18.0); Mean Corpuscular Hemoglobin 28.5 pg (25.0-34.0); Mean Corpuscular Hgb Conc 33.2 g/dL (32.0-36.0); Mean Platelet Volume 11.7 fL (9.4-12.4); Platelet Count 151 K/uL (130-400); RDW Coefficient of Variation 13.9 % (11.5-14.5); RDW Standard Deviation 43.3 fL (36.4-46.3); Red Blood Count 4.63 M/uL (4.63-6.08); White Blood Count 13.05 K/ul (4.8-10.8)
--- NOTE | 2022-07-24 07:05 | Orthopedic Progress Note ---
Date of Service July 24, 2022 Assessment & Plan (1) History of total left knee replacement: Plan: POD #1 s/p left TKA pt/ot dvt proph with ERICA/SCD/ASA plan for d/c home with HHPT, after PT today. Admission and Anticipated Discharge Date Admission Date: July 23, 2022 Subjective POD #1 s/p Left TKA Review of Systems Constitutional: no fever, no chills and no sweats Respiratory: no cough and no dyspnea Cardiovascular: no chest pain and no dyspnea Gastrointestinal: no abdominal pain, no nausea and no vomiting Physical Exam Physical Exam: Vital Signs Temp 36.4 C L 07/24/22 03:53 Pulse 62 07/24/22 03:53 Resp 18 07/24/22 03:53 BP 147/72 H 07/24/22 03:53 Pulse Ox 96 07/24/22 03:53 O2 Del Method 07/24/22 03:53 O2 Flow Rate 2 07/23/22 13:50 Intake & Output 07/23/22 07/24/22 07/24/22 18:59 06:59 18:59 Intake Total 2600 / 4600 2000 / 4600 Output Total 86 / 786 700 / 786 Balance 2514 / 3814 1300 / 3814 Weight 117.6 kg Intake: IV 200 / 1200 1000 / 1200 Lactated Ringe r's 1,000 ml @ 15 0 / 0 mls/hr IV .Q24 H [facility] Rx#: [id number] Sodium Chlorid e 0.9% 1000ML 1, 1000 / 1000 000 ml @ 100 m ls/hr IV .Q10H [facility] Rx#:[id number] Tranexamic Aci d / 0.7% NaCl 1, 200 / 200 000 mg In 100 ml @ 600 mls/hr IV ONE ONE Rx# :[id number] IV Perioperative 2400 / 2400 Oral 1000 / 1000 Output: Urine 550 / 550 Estimated Blood Loss 5 / 5 Drain Output 81 / 231 150 / 231 Left Knee Hemo vac #1 81 / 231 150 / 231 Other: Weight Measureme nt Method Standing Scale Musculoskeletal: Left Leg: NVDI, calf SNT, negative balbir sign. DP palpable, able to wiggle toes/ankle movement without difficulty. dressing clean dry and intact. Results & Data ([facility]) Vital Signs (Past 12 Hours) Vital Signs Temp Pulse Resp BP Pulse Ox O2 Del Method 07/24/22 03:53 36.4 C L 62 18 147/72 H 96 Room Air 07/23/22 23:15 Room Air 07/24/22 00:24 36.9 C 80 16 143/75 H 93 Room Air 07/23/22 20:51 36.8 C 83 16 138/75 93 Room Air 07/23/22 19:39 37.0 C 83 18 131/72 95 Room Air
[2022-07-24 07:09] LABS: BUN Creatinine Ratio 32.4 (10-20); Calcium 8.4 mg/dl (8.5-10.1); Creatinine Clr Calc Pharmacy 76.1 ml/min; Est GFR (African American) 76.5 ml/min; Potassium 4.1 mmol/L (3.5-5.1)
[2022-07-24] MEDS: metFORMIN HCL 500 MG TAB PO SCH (08:02)
[2022-07-24] MEDS: glipiZIDE ER 2.5 MG TABCR PO SCH (08:03)
[2022-07-24] MEDS: ASPIRIN 81 MG ECTAB PO SCH (08:41)
[2022-07-24] MEDS: GABAPENTIN 300 MG CAP PO SCH (08:41)
[2022-07-24] MEDS: DOCUSATE SODIUM 100 MG CAP PO SCH (08:41)
[2022-07-24] MEDS: INSULIN ASPART PER UNIT SC SCH ×2 (08:49→13:15)
[2022-07-24] MEDS ORDERED: MULTIVITAMIN TAB PO SCH (09:00)
[2022-07-24] MEDS ORDERED: FINASTERIDE 5 MG TAB PO SCH (09:00)
[2022-07-24] MEDS ORDERED: CYANOCOBALAMIN (B-12) 500 MCG TABLET PO SCH (09:00)
[2022-07-24] MEDS ORDERED: METOPROLOL SUCC 50MG EXT REL TAB PO SCH (09:00)
[2022-07-24] MEDS ORDERED: TORSEMIDE 20 MG TAB PO SCH (09:00)
--- NOTE | 2022-07-24 11:08 | Hospitalist Progress Note ---
Date of Service July 24, 2022 Assessment & Plan (1) Status post total left knee replacement: Plan: -POD#1 S/P left total knee arthropathy -No reported complications and EBL of 5 mL -Currently afebrile, hemodynamically stable, and stable on room air -pain is controlled, voiding on own, worked with PT/OT hgb stable, vitals stable, renal function acceptable DVT prophylaxis w/ ASA 81mg bid, ERICA felix (2) HTN (hypertension): Plan: -Hemodynamically stable -continue lisinopril and metoprolol, torsemide 2 days per week (3) Type 2 diabetes mellitus: Plan: -Patient usually on metformin, Jardiance, and Glipizide at home HgbA1C well controlled at 7.5% in 06/2022 continue home meds on discharge (4) Hyperlipidemia: Plan: -Continue Atorvastatin (5) Vitamin D deficiency: Plan: -Continue vitamin D (6) Diastolic dysfunction: Plan: Chronic diastolic CHF -Appears Euvolemic on exam -Can continue home torsemide (7) CAD (coronary artery disease): Plan: -Continue aspirin, metoprolol, lisinopril no acute issues (8) Obstructive sleep apnea: Plan: -Does not tolerate CPAP Plan Dispo-medically stable for discharge which sounds like is planned for later today Hospitalist Service will sign off at this time-please feel free to reach out if new or acute issues arise Admission and Anticipated Discharge Date Admission Date: July 23, 2022 Subjective Pt feels well, pain is controlled. Denies CP, SOB. Is eating and drinking, voiding on own, anxious for discharge. Review of Systems Review of Systems: All systems reviewed & are unremarkable except as noted in HPI & below Physical Exam Constitutional: WD/WN, vitals as above Eyes: + anicteric sclerae Neck: trachea midline, no thyromegaly Respiratory: normal respiratory effort, lungs clear to auscultation Cardiovascular: RRR, no murmur, no edema Chest (Breasts): Chest: normal inspection of chest Gastrointestinal (Abdomen): normal bowel sounds, soft, nontender, no hepatosplenomegaly Musculoskeletal: Extremities: + extremities abnormal to inspection (LLE in JOHANA wrap not removed), no cyanosis and no clubbing Skin: no rashes, warm and dry Neurologic: moves all extremities and awake; no focal motor deficits Psychiatric: A+Ox3, euthymic affect Results & Data Results & Data ([facility]) Vital Signs (Past 12 Hours) Vital Signs Temp Pulse Resp BP Pulse Ox O2 Del Method 07/24/22 08:46 61 07/24/22 07:27 36.5 C 57 L 16 134/67 95 Room Air 07/24/22 03:53 36.4 C L 62 18 147/72 H 96 Room Air 07/23/22 23:15 Room Air 07/24/22 00:24 36.9 C 80 16 143/75 H 93 Room Air Laboratory Results 07/24/22 07/24/22 07/24/22 Range/Units 08:14 05:54 05:54 WBC 13.05 H (4.8-10.8) K/ul RBC 4.63 (4.63-6.08) M/uL Hgb 13.2 L (14.0-18.0) g/dl Hct 39.8 L (40.1-51.0) % MCV 86.0 (80.0-100.0) fL MCH 28.5 (25.0-34.0) pg MCHC 33.2 (32.0-36.0) g/dL RDW Std Deviation 43.3 (36.4-46.3) fL RDW Coeff of Vamsi 13.9 (11.5-14.5) % Plt Count 151 (130-400) K/uL MPV 11.7 (9.4-12.4) fL Sodium 135 L (136-145) mmol/L Potassium 4.1 (3.5-5.1) mmol/L Chloride 104 (98-107) mmol/L Carbon Dioxide 22 (21-32) mmol/L Anion Gap 9 (3-11) BUN 36 H (6-23) mg/dl Creatinine 1.11 (0.6-1.4) mg/dl Est Cr Clr Drug Dosing 76.1 ml/min Est GFR ( Amer) 76.5 ml/min Est GFR (Non-Af Amer) 66.0 ml/min BUN/Creatinine Ratio 32.4 H (10-20) Glucose 177 H (70-99(Fasting)) mg/dl POC Glucose 141 H (70-99) mg/dl Calcium 8.4 L (8.5-10.1) mg/dl 07/23/22 07/23/22 Range/Units 21:31 13:25 WBC (4.8-10.8) K/ul RBC (4.63-6.08) M/uL Hgb (14.0-18.0) g/dl Hct (40.1-51.0) % MCV (80.0-100.0) fL MCH (25.0-34.0) pg MCHC (32.0-36.0) g/dL RDW Std Deviation (36.4-46.3) fL RDW Coeff of Vamsi (11.5-14.5) % Plt Count (130-400) K/uL MPV (9.4-12.4) fL Sodium (136-145) mmol/L Potassium (3.5-5.1) mmol/L Chloride (98-107) mmol/L Carbon Dioxide (21-32) mmol/L Anion Gap (3-11) BUN (6-23) mg/dl Creatinine (0.6-1.4) mg/dl Est Cr Clr Drug Dosing ml/min Est GFR ( Amer) ml/min Est GFR (Non-Af Amer) ml/min BUN/Creatinine Ratio (10-20) Glucose (70-99(Fasting)) mg/dl POC Glucose 149 H 145 H (70-99) mg/dl Calcium (8.5-10.1) mg/dl PG Care Time/CCT Total # of Minutes Spent Total Time Spent with Patient: Total time spent is greater than 50% in coordination of care (as documented) at patient's floor/unit and/or counseling patient: Coding Level of Care Code 86065 Subseq Hosp Care Lvl 1 Diagnoses Status post total left knee replacement Z96.652 HTN (hypertension) I10 Hypertension type: essential hypertension Type 2 diabetes mellitus E11.9 Hyperlipidemia E78.5 Vitamin D deficiency E55.9 Diastolic dysfunction I51.89 CAD (coronary artery disease) I25.10 Obstructive sleep apnea G47.33 (1) HTN (hypertension) Hypertension type: essential hypertension Qualified Code(s): I10 - Essential (primary) hypertension
[2022-07-24] MEDS ORDERED: lisinopril 5 MG TAB PO SCH (21:00)
[2022-07-26] MEDS ORDERED: TORSEMIDE 20 MG TAB PO SCH (09:00)
--- NOTE | 2022-07-28 18:02 | Discharge Summary ---
Date of Service July 28, 2022 Admission HPI Per Admitting Provider Tanvi is a 71-year-old male who presents for preop evaluation prior to left total knee replacement at [facility]. Tanvi has been having pain in his knee for many years now, is now affecting his daily activities. Is difficulty walking standing for prolonged period of times using stairs. He is tried oral anti-inflammatories and Tylenol without relief. He had previous cortisone injections as well as viscosupplementation without relief. He has a history of right knee replacement by Dr. Cohn several years ago. After discussing further care and failing conservative measures he would like to proceed with left total knee replacement Admission Exam Per Admitting Provider Physical Exam: HT: 5ft 9in WT: 118.8kg Constitutional: WD/WN, vitals as above no acute distress Respiratory: normal respiratory effort, lungs clear to auscultation no respiratory distress, no labored breathing and does not use accessory muscles Cardiovascular: RRR, no murmur, no edema Gastrointestinal (Abdomen): normal bowel sounds, soft, nontender, no hepatosplenomegaly Musculoskeletal: Knee: + knee abnormal to inspection (LEFT KNEE: ), + effusion (+1 effusion), + limited ROM of knee (ROM 0/3/110), + knee ROM with crepitation, + joint line tenderness (medial joint line) and + Herber's sign positive; no deformity, no skin erythema, no ecchymosis, no valgus laxity, no varus laxity, anterior drawer test negative, Brian's sign negative and pivot shift test negative Principal Diagnosis Left knee osteoarthritis Discharge Data Allergies Allergy/AdvReac Type Severity Reaction Status Date / Time quinine Allergy Intermediate "PETECHIAE" Verified 07/23/22 09:42 Consultations 07/23/22 05:00 Consult Hospitalist Routine Procedures Performed Operation Date: 07/23/22 11:40 Actual Procedures p Left Total Knee Arthroplasty(Left) - Ace Mcclelland DO Ordered Studies 07/23/22 05:00 US - OR guided needle placemen Routine Hospital Course (1) History of total left knee replacement: Patient:TANVI CASTILLO Admit Date:07/23/22 MR#:[id number] Att Phy:Ace Mcclelland,D.OJovany Acct ID:[id number] Donna Phy:Meghana Hayes MD Date:1950 [facility] Phy: Age:71 Location:3E Sex:M Room/Bed:[facility] cc: ~ *NOTICE TO RECEIVING DEMOCRAT/AGENCY This information is strictly Confidential and protected under [place] law. [place] law prohibits you from making any further disclosure of this information unless further disclosure is expressly permitted by the written consent of the person to whom it pertains or is authorized by law. A general authorization for the release of medical or other information is not sufficient for this purpose. Hospital accepts no responsibility if the information is made available to any other person, INCLUDING THE PATIENT. Date of Service July 24, 2022 Assessment & Plan (1) History of total left knee replacement: Plan: POD #1 s/p left TKA pt/ot dvt proph with ERICA/SCD/ASA plan for d/c home with HHPT, after PT today. Admission and Anticipated Discharge Date Admission Date: July 23, 2022 Subjective POD #1 s/p Left TKA Review of Systems Constitutional: no fever, no chills and no sweats Respiratory: no cough and no dyspnea Cardiovascular: no chest pain and no dyspnea Gastrointestinal: no abdominal pain, no nausea and no vomiting Physical Exam Physical Exam: Vital Signs Temp 36.4 C L 07/24/22 03:53 Pulse 62 07/24/22 03:53 Resp 18 07/24/22 03:53 BP 147/72 H 07/24/22 03:53 Pulse Ox 96 07/24/22 03:53 O2 Del Method 07/24/22 03:53 O2 Flow Rate 2 07/23/22 13:50 Intake & Output 07/23/22 07/24/22 07/24/22 18:59 06:59 18:59 Intake Total 2600 / 4600 2000 / 4600 Output Total 86 / 786 700 / 786 Balance 2514 / 3814 1300 / 3814 Weight 117.6 kg Intake: IV 200 / 1200 1000 / 1200 Lactated Ringe r's 1,000 ml @ 15 0 / 0 mls/hr IV .Q24 H ELIF Rx#: [id number] Sodium Chlorid e 0.9% 1000ML 1, 1000 / 1000 000 ml @ 100 m ls/hr IV .Q10H ELIF Rx#:[id number] Tranexamic Aci d / 0.7% NaCl 1, 200 / 200 000 mg In 100 ml @ 600 mls/hr IV ONE ONE Rx# :[id number] IV Perioperative 2400 / 2400 Oral 1000 / 1000 Output: Urine 550 / 550 Estimated Blood Loss 5 / 5 Drain Output 81 / 231 150 / 231 Left Knee Hemo vac #1 81 150 / 231 Other: Weight Measureme nt Method Standing Scale Musculoskeletal: Left Leg: NVDI, calf SNT, negative balbir sign. DP palpable, able to wiggle toes/ankle movement without difficulty. dressing clean dry and intact. Results & Data ([facility]) Vital Signs (Past 12 Hours) Vital Signs Temp Pulse Resp BP Pulse Ox O2 Del Method 07/24/22 03:53 36.4 C L 62 18 147/72 H 96 Room Air 07/23/22 23:15 Room Air 07/24/22 00:24 36.9 C 80 16 143/75 H 93 Room Air 07/23/22 20:51 36.8 C 83 16 138/75 93 Room Air 07/23/22 19:39 37.0 C 83 18 131/72 95 Room Air Signed By: <Electronically signed by Yo Mcarthur PA-C> 07/24/22 0706 <Electronically signed by Be Gupta M.D.> 07/24/[address] Meza from hospital service: Plan Dispo-medically stable for discharge which sounds like is planned for later today Hospitalist Service will sign off at this time-please feel free to reach out if new or acute issues arise Total Time Total Time Spent Total Time Spent (In Minutes): 5 Discharge Plan Discharge Items Patient Disposition: Home - Home Health Services Reason For Visit: LEFT TKA Discharge Diagnosis: Left Knee Osteoarthritis Activity: Per Instructions section Weightbearing Comment: as tolerated with walker Non-emergency contact: Primary Care Provider and Surgeon Call non-emergency contact if: you have any medication questions, your pain is not controlled, your temperature is above 101.5, your wound has increased redness and your wound has increased drainage Follow-up/Referrals: Meghana Hayes MD [Primary Care Provider] - (Follow up within 1-2 weeks) Ace Mcclelland DO [Surgeon] - (Follow up with Dr Mcclelland in 2 weeks from the day of your surgery for your first follow up visit) Diet: Carb Consistent or DM2 and Heart Healthy Addtl Attending Provider Instructions: ACTIVITY RECOMMENDATIONS: SELF CARE INSTRUCTIONS AFTER TOTAL KNEE REPLACEMENT A. You may need to continue a physical therapy program after discharge from the hospital. There are several options available to you. Your doctor will assist you in selecting the best one for you. 1. An out-patient facility 2 to 3 times a week for therapy or home therapy. 2. Continue working on all exercises taught to you in the hospital. Your goals should be to increase bending of your knee to 90 degrees and beyond and to fully straighten your knee. B. You may progress at your own pace from walking with a walker or crutches to a cane; then to no assistive devices. C. Make walking a part of your daily routine. Be up as much as comfortable with rest periods throughout the day. Rest with leg elevation is very important. Use the ice wrap frequently for the first 3-4 weeks. D. There are no restrictions on activities. You may ride in a car, shop, participate in compensation consulting manager and all social activities. E. Wear the long elastic stockings (ERICA hose) 20 hours a day for 2 weeks after surgery. They can be removed several times a day for laundering and for a bath. F. You may shower, no tub baths until cleared by your doctor. SPECIAL CARE INSTRUCTIONS: VERY IMPORTANT TO READ AND REVIEW A. There are a few signs you need to watch for after you are home. Call [facility] if you notice any of the followin. Increased severe knee pain. Some pain is expected especially when you exercise. 2. Increased swelling in your leg or knee; pain or swelling of the calf mus sai in either lower leg. 3. Any fluid drainage from the incision. 4. Shortness of breath or chest pain. B. Please call [facility] at if you have any concerns or questions about your operation or recovery. The doctor or his nurse will return your call promptly. C. You must take antibiotics before dental work, bladder, bowel or other surgery. Your doctor will provide you with a permanent care to carry describing this precaution. IMPORTANT: * REMEMBER TO TAKE ASPIRIN, 81 MG, TWICE DAILY FOR 4 WEEKS UNLESS OTHERWISE DIRECTED. THIS IS YOUR BLOOD THINNER. * HIGH RISK PATIENTS MAY BE PRESCRIBED A STRONGER BLOOD THINNER. THIS WILL BE PROVIDED AT DISCHARGE. * CALL IF INCREASED PAIN, REDNESS, DRAINAGE OR FEVER GREATER THAT 101. * WEAR ERICA HOSE 20 HOURS PER DAY FOR 2 WEEKS. * NELLI Dressing - This is a large suction dressing covering your incision. This will help pull any excess drainage from the wound and allow your incision to heal properly. You may shower with this if you can keep the unit outside of the shower. If any bleeding or leakage is noted please call your doctor's office. This will remain on your incision for 7 days and then should be removed. This can be done yourself or by the home nursing staff if applicable. The entire unit is disposable once removed. Once removed, keep incision clean and dry. If redness or drainage is noted, please call your surgeon. . FOLLOW UP VISIT: If appointment is not already scheduled: Please call [facility] to make a follow-up appointment for 2 weeks after your surgery at . Pending Studies at Discharge: No Stand-Alone Forms: My [facility] Candescent Healing, Smoking Cessation Medications and DC Order Prescriptions: New aspirin 81 mg Tablet,Delayed Release (Dr/Ec) 81 mg PO BID 30 Days Qty: 60 0RF acetaminophen [Tylenol Extra Strength] 500 mg Tablet 1,000 mg PO Q8H 21 Days Qty: 126 0RF oxycodone 5 mg Tablet 5 - 10 mg PO Q6H PRN (Reason: pain) Qty: 30 0RF Rx Instructions: ongoing therapy, supervising dr omid mcclelland. max 6 tabs in 24 hours docusate sodium 100 mg Capsule 100 mg PO BID 10 Days Qty: 20 0RF cefadroxil 500 mg capsule 500 mg PO BID 14 Days Qty: 28 0RF Continued magnesium oxide 400 mg magnesium capsule 400 mg PO HS glipizide 10 mg tablet extended release 24hr 10 mg PO BID Qty: 180 3RF metformin 1,000 mg tablet 1,000 mg PO BID Qty: 180 3RF Jardiance 25 mg tablet 25 mg PO QAM tamsulosin [Flomax] 0.4 mg capsule 0.4 mg PO QPM Qty: 90 3RF gabapentin 100 mg capsule 300 mg PO BID Qty: 540 3RF mecobalamin (vitamin B12) 1,000 mcg tablet,chewable 1,000 mcg PO QAM atorvastatin 40 mg tablet 40 mg PO HS cholecalciferol (vitamin D3) [Vitamin D3] 5,000 unit Tablet 5,000 unit PO HS torsemide 20 mg Tablet 20 mg PO QAM metoprolol succinate [Toprol XL] 100 mg Tablet Extended Release 24 Hr 100 mg PO QAM lisinopril 10 mg tablet 5 mg PO HS finasteride 5 mg Tablet 5 mg PO QAM vit A-vit C-vit [id number] Tablet 1 tab PO QAM Discontinued acetaminophen [Tylenol Extra Strength] 500 mg tablet 1,000 mg PO BID aspirin 81 mg tablet,delayed release (DR/EC) 81 mg PO HS Discharge Orders: Discharge Order (Routine); Ordered 07/24/22 Ordered By: Yo Mcarthur Admission Data Admit Date/Time: 07/23/22 13:38 Attending Provider: Ace Mcclelland Admit Provider: Ace Mcclelland Primary Care Provider: Meghana Hayes Other Providers: Josr Mendosa Natalie B. Other Interventions: Discharge Summary Assessment (RN) Last Done: 07/24/22 12:02
== END 2022-07-24 15:00 | disposition home health service (06) ==
LOC: ASU 09:15 → PACUINP 09:15 → 3E 17:00
DX: I50.32 Chronic diastolic (congestive) heart failure; I11.0 Hypertensive heart disease with heart failure; Z87.891 Personal history of nicotine dependence; G47.33 Obstructive sleep apnea (adult) (pediatric); Z79.899 Other long term (current) drug therapy; Z88.8 Allergy status to other drugs, medicaments and biological substances; Z79.82 Long term (current) use of aspirin; M17.12 Unilateral primary osteoarthritis, left knee; E55.9 Vitamin D deficiency, unspecified; Z79.84 Long term (current) use of oral hypoglycemic drugs; E78.5 Hyperlipidemia, unspecified

== ENCOUNTER 2024-03-22 05:47 | Inpatient (IN) ==
--- NOTE | 2024-02-24 13:11 | PAT Medication Instructions ---
Medication Instructions Date of Service February 24, 2024 Home Medications Medication Instructions Recorded glipizide 10 mg tablet, extended 10 mg PO BID #180 tabs 11/01/20 release 24 hr metformin 1,000 mg tablet 1,000 mg PO BID #180 tabs 11/01/20 tamsulosin 0.4 mg capsule (Flomax) 0.4 mg PO QPM #90 caps 08/22/22 pregabalin 75 mg capsule 75 mg PO BID #60 caps 01/04/24 celecoxib 200 mg capsule 200 mg PO BID #60 caps 01/20/24 Medication List: atorvastatin 40 mg tablet 40 mg PO HS cholecalciferol (vitamin D3) 125 mcg (5,000 unit) tablet (Vitamin D3) 5,000 unit PO HS magnesium oxide 400 mg PO HS mecobalamin (vitamin B12) 1,000 mcg chewable tablet 1,000 mcg PO QAM glipizide 10 mg tablet, extended release 24 hr 10 mg PO BID metformin 1,000 mg tablet 1,000 mg PO BID empagliflozin 25 mg tablet (Jardiance) 25 mg PO QAM finasteride 5 mg tablet 5 mg PO QAM metoprolol succinate 100 mg tablet,extended release 24 hr (Toprol XL) 100 mg PO QAM vit A 7,160 unit-vit C 113 mg-vit E 100 [id number]-wmeb-iiobfh tablet 1 tab PO QAM tamsulosin 0.4 mg capsule (Flomax) 0.4 mg PO QPM lisinopril 5 mg tablet 5 mg PO QPM torsemide 20 mg tablet 10 mg PO QAM pregabalin 75 mg capsule 75 mg PO BID celecoxib 200 mg capsule 200 mg PO BID aspirin 81 mg capsule,delayed release 81 mg PO QAM MEDICATION INSTRUCTIONS: ASK your surgeon for instructions celecoxib 200 mg capsule 200 mg PO BID ASK your prescriber and surgeon aspirin 81 mg capsule,delayed release 81 mg PO QAM STOP taking 2 weeks before surgery vit A 7,160 unit-vit C 113 mg-vit E 100 sgyw-sppe-zgnfcr tablet 1 tab PO QAM DO NOT take the morning of surgery glipizide 10 mg tablet, extended release 24 hr 10 mg PO BID metformin 1,000 mg tablet 1,000 mg PO BID mecobalamin (vitamin B12) 1,000 mcg chewable tablet 1,000 mcg PO QAM torsemide 20 mg tablet 10 mg PO QAM Take morning of surgery With a small sip of water, OTHERWISE NOTHING TO EAT OR DRINK AFTER MIDNIGHT: finasteride 5 mg tablet 5 mg PO QAM metoprolol succinate 100 mg tablet,extended release 24 hr (Toprol XL) 100 mg PO QAM pregabalin 75 mg capsule 75 mg PO BID Take evening before surgery tamsulosin 0.4 mg capsule (Flomax) 0.4 mg PO QPM atorvastatin 40 mg tablet 40 mg PO HS cholecalciferol (vitamin D3) 125 mcg (5,000 unit) tablet (Vitamin D3) 5,000 unit PO HS magnesium oxide 400 mg PO HS lisinopril 5 mg tablet 5 mg PO QPM glipizide 10 mg tablet, extended release 24 hr 10 mg PO BID metformin 1,000 mg tablet 1,000 mg PO BID pregabalin 75 mg capsule 75 mg PO BID Other Notes STOP 3 days prior to surgery: empagliflozin 25 mg tablet (Jardiance) 25 mg PO QAM If you have any questions please call us at [phone] or [phone] or [phone] or [phone]
--- NOTE | 2024-02-29 11:00 | Anesthesiology Consultation ---
Date of Service February 29, 2024 Assessment & Plan (1) Encounter for pre-operative examination: - check BSG am DOS. - surgeon ordered medical clearance, [facility]. Patient also plans to complete surgeon ordered labs and BMP at [place]. He was provided with physical order for BMP-surgeon's office also made aware. - cardiology clearance 02/23/24 [facility]: "...risk stratification dobutamine stress echocardiography negative for ischemia. Resting echocardiographic acceptable/stable. Patient is considered an acceptable surgical risk..." - cardiology office visit 01/15/24 [facility]: "...no chest pain or discomfort. Stable exertional dyspnea...hypertension, controlled...mild volume overload. patient to double torsemide dosing until fluid has resolved then resume prior dosing of 1/2 tablet daily. Bifascicular block. Zio monitoring last performed in March 2022, acceptable...recommend risk stratification dobutamine stress echocardiography..." Chart Review Chart Review: Pending: Refer to Additional Notes / Consult section and Patient seen in Pre Admission Testing Teaching & Discussion Pre-Anesthesia Teaching/Discussion Notes: Instructed NPO after midnight before surgery, except medications with 15 cc of water. Medication instructions provided according to the PAT guidelines. History Surgery Operation Date: 03/22/24 07:15 Proposed Procedures p L4-L5 Transforminal Lumbar Interbody Fusion with Posterior Instrumentation Fusion and Cage Placement - Gagan Morejon MD Height/Weight Height: 5 ft 9 in Weight: 118.5 kg Allergies Allergy/AdvReac Type Severity Reaction Status Date / Time quinine Allergy Intermediate "PETECHIAE" Verified 02/24/24 11:34 Medications Home Medications Medication Instructions Recorded Confirmed Last Taken atorvastatin 40 mg tablet 40 mg PO HS 09/07/18 02/24/24 07/22/22 18:00 cholecalciferol (vitamin D3) 125 5,000 unit PO HS 09/07/18 02/24/24 07/22/22 18:00 mcg (5,000 unit) tablet (Vitamin D3) magnesium oxide 400 mg PO HS 12/05/19 02/24/24 07/22/22 18:00 mecobalamin (vitamin B12) 1,000 1,000 mcg PO QAM 06/19/20 02/24/24 07/22/22 07:00 mcg chewable tablet glipizide 10 mg tablet, extended 10 mg PO BID #180 tabs 11/01/20 02/24/24 18:00 release 24 hr metformin 1,000 mg tablet 1,000 mg PO BID #180 tabs 11/01/20 02/24/24 07/22/22 18:00 empagliflozin 25 mg tablet 25 mg PO QAM 04/11/21 02/24/24 07/19/22 (Jardiance) finasteride 5 mg tablet 5 mg PO QAM 05/15/21 02/24/24 07/23/22 07:30 metoprolol succinate 100 mg 100 mg PO QAM 05/15/21 02/24/24 07/23/22 07:30 tablet,extended release 24 hr (Toprol XL) vit A 7,160 unit-vit C 113 mg-vit 1 tab PO QAM 05/15/21 02/24/24 07/09/22 E 100 qzos-xctq-apnbaz tablet tamsulosin 0.4 mg capsule (Flomax) 0.4 mg PO QPM #90 caps 08/22/22 02/24/24 Unknown lisinopril 5 mg tablet 5 mg PO QPM 01/09/23 02/24/24 Unknown torsemide 20 mg tablet 10 mg PO QAM 01/09/23 02/24/24 Unknown pregabalin 75 mg capsule 75 mg PO BID #60 caps 01/04/24 02/24/24 Unknown celecoxib 200 mg capsule 200 mg PO BID #60 caps 01/20/24 02/24/24 Unknown aspirin 81 mg capsule,delayed 81 mg PO QAM 02/24/24 02/24/24 Unknown release Past Medical History Medical History (Updated 02/29/24 @ 12:03 by Anu Strange PA-C) Bifascicular block followed by [facility] cardio Chronic knee pain after total replacement of left knee joint Diastolic dysfunction EF 55-60%, Grade I diastolic dysfunction GERD (gastroesophageal reflux disease) infrequent History of blood transfusion 2012, during AAA HTN (hypertension) controlled, stable per pt Hyperlipidemia Lumbar radiculopathy Obstructive sleep apnea did not tolerate CPAP Pulmonary HTN not noted on most recent echo Spinal stenosis of lumbar region Thoracic ascending aortic aneurysm per pt follows with Yo Holden---pt states he has 2 aneurysms at this time > last checked 09/2023 at [facility] > reports has not increased in size Tinnitus of both ears Type 2 diabetes mellitus NIDDM Patient denies h/o stroke, seizures, heart attack, heart failure, blood clots/DVTs or blood transfusions. Exercise / Class Metabolic Activity II 4-5 Yardwork/Stairs/Walk up hill (denies chest discomfort or shortness of breath with one flight of stairs) Past Family History Family History Mother Diabetes Breast cancer Other No family history of adverse response to anesthesia No pertinent family history in first degree relatives Past Surgical History Surgical History History of AAA (abdominal aortic aneurysm) repair (2012) History of bilateral cataract extraction History of bilateral knee replacement History of colonoscopy History of hernia surgery (~2011) umbilical History of tonsillectomy and adenoidectomy History of tooth extraction Hx of colonoscopy with polypectomy S/P epidural steroid injection x 5-6 Status post Mohs surgery L ear and neck Status post ORIF of fracture of ankle left--hardware in place Past Anesthesia History No Family Hx of Anesthesia Complications and Other (awareness during knee replacement) History of PONV No Hx of PONV and No Hx of Motion Sickness Social History Smoking Status: Former smoker Do You Dip or Chew Tobacco: No Smoking End Date: quit 36 years (2 PPD) Hx Alcohol Use: No (quit 36 years ago) Hx Substance Use: No substance use type: does not use Review of Systems Patient denies chest pain, shortness of breath, dyspnea on exertion, fever, chills, cough, wheezing, or palpitations. Physical Exam Vital Signs Vitals BP 136/80 P 70 TEMP 97.9 SP02 94% on RA RESP 17 Physical Patient resting comfortably in chair in no acute distress, alert and oriented, responding appropriately throughout visit Full cervical extension range of motion without pain TMD 3.5 finger breadths Mallampati Score 2 Dentition: one broken tooth-he states surgeon's office is aware of this and upcoming dental appointment, several partials; denies loose teeth, caps/crowns, implants or bridges Lungs: normal respiratory effort. Good air movement, clear throughout to auscultation, no adventitious breath sounds Cardiac: regular rate and rhythm, no murmurs noted Carotid arteries: negative bruit bilat Neurologic: mild head and left arm tremor with action-chronic per patient without change or worsening Testing Electrocardiogram Date: 01/15/24 Sinus bradycardia with 1st degree AV block, rate 58 bpm Left anterior fascicular block Possible lateral infarct, cited on or before 11/02/21 Cannot rule out inferior infarct, age undetermined No significant change vs 07/09/23 EKG Chest X-Ray Date: 02/29/24 No acute cardiopulmonary findings. Stable cardiomegaly. Echocardiogram Date: 07/09/23 EF 60-64% Mild cLVH Normal LV wall motion Grade I diastolic dysfunction Mild aortic valve sclerosis Moderately enlarged aortic root at 4.6 cm Mildly enlarged ascending aorta at 4.4 cm Stress Test Date: 02/23/24 Pharmacologic MPHR 146% Negative for inducible ischemia SVT at 180 bpm noted at peak infusion Normal LV wall motion at rest EF 55-59% Moderate cLVH Grade I diastolic dysfunction Mild aortic valve sclerosis, no stenosis Mild pulmonary regurgitation Mild tricuspid regurgitation Moderately enlarged aortic root at 4.6 cm Mildly enlarged ascending aorta at 4.4 cm
[2024-03-22] MEDS ORDERED: ROCURONIUM BROMIDE 10 MG/ML 5 ML VIAL IV ONE ×2 (06:37→08:15)
[2024-03-22] MEDS ORDERED: fentaNYL citrate PF 100 MCG/2 ML VIAL ONE ×2 (06:37→08:25)
[2024-03-22] MEDS ORDERED: DEXAMETHASONE SOD INJ 4 MG/ML VIAL ONE ×3 (06:37→06:38)
[2024-03-22] MEDS ORDERED: GLYCOPYRROLATE 0.2 MG/ML VIAL ONE (06:37)
[2024-03-22] MEDS ORDERED: PROPOFOL IV EMULSION 10 MG/ML 20 ML VIAL IV ONE (06:37)
[2024-03-22] MEDS ORDERED: MIDAZOLAM HCL 1 MG/ML 2ML VIAL ONE (06:37)
[2024-03-22] MEDS ORDERED: ONDANSETRON INJ 2 MG/ML 2 ML VIAL ONE (06:37)
[2024-03-22] MEDS ORDERED: SUGAMMADEX SODIUM 200 MG/2 ML VIAL IV ONE (06:37)
[2024-03-22] MEDS: LR 15ML/HR IV SCH (06:40)
[2024-03-22] MEDS: LR 60ML/HR IV SCH (06:40)
--- NOTE | 2024-03-22 07:24 | History & Physical Bridge Note ---
Date of Service March 22, 2024 History & Physical Bridge Note I have examined the patient, reviewed the History & Physical and in the interval since the performance of the History & Physical I have noted the following changes of clinical significance: no changes noted
[2024-03-22] MEDS ORDERED: ONDANSETRON INJ 2 MG/ML 2 ML VIAL IV PRN ×2 (07:48→13:35)
[2024-03-22] MEDS ORDERED: HYDROmorphone INJ 1 MG/ML SYRINGE IV PRN (07:48)
[2024-03-22] MEDS ORDERED: PROMETHAZINE HCL 6.25 MG in SODIUM CHLORIDE 0.9% 50 ML IV PRN (07:48)
[2024-03-22] MEDS ORDERED: NALOXONE HCL 0.4 MG/1 ML VIAL/CARP IV PRN ×2 (07:48→13:35)
[2024-03-22] MEDS ORDERED: ATROPINE SULFATE 0.1 MG/ML 10ML SYR IV PRN (07:48)
[2024-03-22] MEDS ORDERED: ePHEDrine sulfate 50 MG/ML AMP IV PRN (07:48)
[2024-03-22] MEDS ORDERED: fentaNYL citrate PF 100 MCG/2 ML VIAL IV PRN (07:48)
[2024-03-22] MEDS ORDERED: FLUMAZENIL 0.1 MG/1 ML 10 ML VIAL IV PRN (07:48)
[2024-03-22] MEDS ORDERED: PHENYLEPHRINE 100MCG/ML 10ML SYR IV ONE (08:01)
[2024-03-22] MEDS: ceFAZolin 2000MG 2,000 MG/15 ML SYR IV SCH (08:13)
[2024-03-22] MEDS ORDERED: PHENYLEPHRINE HCL 10 MG/ML VIAL ONE (09:49)
[2024-03-22] MEDS ORDERED: HYDROmorphone INJ 2 MG/ML SYR/VIAL ONE (10:37)
[2024-03-22] MEDS ORDERED: ceFAZolin 330 MG/ML 1 GM VIAL ONE (12:17)
[2024-03-22] MEDS: ceFAZolin 2000MG 2,000 MG/15 ML SYR IV ONE (12:18)
[2024-03-22] MEDS: GELATIN SPONGE 12-7MM ONE (12:58)
[2024-03-22] MEDS: BUPIVACAINE/EPINEPHRINE 0.5% MPF 1:200,000 30 ML VIAL ONE (12:58)
[2024-03-22] MEDS: THROMBIN 5000 UNITS KIT ONE (12:58)
[2024-03-22] MEDS: VANCOMYCIN HCL 1000MG/20ML VIAL ONE (12:58)
[2024-03-22] MEDS: FLOSEAL HEMOSTATIC MATRIX 5ML TOP ONE (13:00)
[2024-03-22] MEDS: FLOSEAL HEMOSTATIC MATRIX 10ML TOP ONE (13:00)
[2024-03-22] MEDS ORDERED: LORazepam 0.5 MG TAB PO PRN (13:35)
[2024-03-22] MEDS ORDERED: DO NOT ADMINISTER FLU VACCINE PRN (13:35)
[2024-03-22] MEDS ORDERED: ALUMINUM/MAGNESIUM SUSP 30 ML UDC PO PRN (13:35)
[2024-03-22] MEDS ORDERED: LORazepam 0.5 MG in SYRINGE 0.25 ML IV PRN (13:35)
[2024-03-22] MEDS ORDERED: HYDROmorphone INJ 0.5 MG/0.5 ML SYR IV PRN (13:35)
[2024-03-22] MEDS ORDERED: ONDANSETRON 4 MG OD TAB PO PRN (13:35)
[2024-03-22] MEDS ORDERED: METOCLOPRAMIDE HCL INJ 5 MG/ML 2 ML VIAL IV PRN (13:35)
[2024-03-22] MEDS ORDERED: ACETAMINOPHEN 1,000 MG/100 ML VIAL IV PRN (13:35)
[2024-03-22] MEDS ORDERED: DO NOT ADMINISTER PNEUMOCOCCAL VACCINE PRN (13:35)
[2024-03-22] MEDS ORDERED: FAMOTIDINE 20 MG TAB PO PRN (13:35)
[2024-03-22] MEDS ORDERED: hydrOXYzine HCl 25 MG TAB PO PRN (13:35)
[2024-03-22] MEDS ORDERED: MAGNESIUM HYDROXIDE SUSP 30 ML UDC PO PRN (13:35)
[2024-03-22] MEDS ORDERED: diphenhydrAMINE Capsule 25 MG CAP PO PRN (13:35)
[2024-03-22] MEDS ORDERED: bisacodyL 10 MG SUPP PR PRN (13:35)
[2024-03-22] MEDS ORDERED: PROMETHAZINE HCL 12.5 MG in SODIUM CHLORIDE 0.9% 50 ML IV PRN (13:35)
[2024-03-22] MEDS ORDERED: SOD PHOSPHATE/SOD BIPHOSPHATE ENEMA 132 ML BTL PR PRN (13:35)
[2024-03-22] MEDS ORDERED: oxyCODONE/ACETAMINOPHEN 10-325 TAB PO PRN (13:35)
--- NOTE | 2024-03-22 13:35 | Post Operative Brief Note ---
PG Immediate Post Op with CF Date of Surgery March 22, 2024 Pre & Post Diagnosis Operation Date: 03/22/24 07:15 Pre-Op Diagnosis: Degenerative Spongylolisthesis, Lumbar Pain, Spinal Stenosis Post-Op Diagnosis: Degenerative Spongylolisthesis, Lumbar Pain, Spinal Stenosis I identified the patient and participated in the time-out.: Yes Procedure Operation Date: 03/22/24 07:15 Actual Procedures p L4-L5 Transforminal Lumbar Interbody Fusion with Posterior Instrumentation Fusion and Cage Placement, Spinal Cord Monitoring(Not Applicable) - Gagan Morejon MD Surgeon Gagan Morejon MD Banquet Attendant none Estimated Blood Loss 320 Findings Consistent with Post-Op Diagnosis Specimens Specimen Description: No specimen collected per surgeon Drains Lundberg Catheter
--- NOTE | 2024-03-22 14:17 | Anesthesiology Progress Note ---
Date of Service March 22, 2024 Anesthesia Post Procedure Vital Signs Vital Signs: Temp Pulse Pulse Resp BP BP Pulse Ox 03/22/24 14:05 87 18 144/81 H 94 03/22/24 13:55 91 H 16 150/92 H 93 03/22/24 13:45 94 H 16 162/85 H 95 03/22/24 13:38 36.1 C L 90 14 160/83 H 94 03/22/24 06:24 36.7 C 62 20 167/96 H 97 O2 Del Method O2 Flow Rate 03/22/24 14:05 Nasal Cannula 4 03/22/24 13:55 Oxymask 4 03/22/24 13:45 Oxymask 4 03/22/24 13:38 Oxymask 6 03/22/24 06:24 Room Air Pain Intensity Back: Pain Intensity: 2 Transfer of Care Handoff Completed per policy Notes Mental Status: alert / awake / arousable Patient Amnestic to Procedure: Yes Nausea / Vomiting: adequately controlled Pain: adequately controlled Airway Patency, RR, SpO2: stable & adequate BP & HR: stable & adequate Hydration State: stable & adequate Anesthetic Complications: no major complications apparent
[2024-03-22] MEDS: LACTATED RINGER'S 1,000 ML IV SCH (15:15)
[2024-03-22] MEDS ORDERED: GLUCOSE 40% GEL 15 GM TUBE PO PRN (15:23)
[2024-03-22] MEDS ORDERED: GLUCAGON FOR INJ 1 MG VIAL SQ PRN (15:23)
[2024-03-22] MEDS ORDERED: DEXTROSE 50% 50 ML SYRINGE IV PRN (15:23)
[2024-03-22] MEDS ORDERED: CARBOHYDRATES FOR HYPOGLYCEMIA PO PRN (15:23)
[2024-03-22] MEDS ORDERED: GLUCOSE 10 TAB/TUBE PO PRN (15:23)
--- NOTE | 2024-03-22 15:29 | Hospitalist Progress Note ---
Date of Service March 22, 2024 Assessment & Plan (1) Degenerative spondylolisthesis: Plan: Patient underwent L4-5 transformational lumbar interbody fusion with posterior instrumentation fusion and cage replacement by Dr. Carroll on 03/22/2024 (2) Diastolic dysfunction: Plan: History of heart failure preserved ejection fraction. Preoperative stress test on . Does have bifascicular block on the EKG. Patient is hemodynamically stable at this time typically taking torsemide lisinopril and metoprolol. Will continue metoprolol XL daily lisinopril will be delayed until the sixth torsemide will be delayed until the fifth (3) Type 2 diabetes mellitus: Plan: Last A1c was 7.4 takes empagliflozin glipizide and metformin. Metformin is held other medications are given and a loose insulin/scale be employed (4) Lower urinary tract symptoms (LUTS): Plan: Patient chronically takes tamsulosin and Proscar Admission and Anticipated Discharge Date Admission Date: March 22, 2024 Subjective 73-year-old male underwent L4-5 transformational lumbar interbody fusion and posterior instrumentation by Dr. 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 Medical problems include diabetes what seems to be heart failure preserved ejection fraction and BPH. Patient has been restarted on appropriate medications at this time postoperatively, adding a loose sliding scale insulin, holding metformin, delaying some of his antihypertensives and diuretics in his postoperative state Patient was seen in company of his and updated. His biggest problem is that he actually tried to urinate into the urinal and made a mess Review of Systems Review of Systems: Mild distress and fatigue no headache, no visual changes no speech or swallowing issues no chest pain, pressure or palpitations no shortness of breath, cough or wheezes no abdominal pain, nausea or vomiting, diarrhea or constipationhad a bowel movement the morning prior to procedure Is having some dysuria since Lundberg has been removed but no hematuria no focal joint pain or swelling This is some red king on his skin consistent with possible Tepe will follow no focal signs of weakness or numbness or altered sensation no complaints of anxiety or depression.. Physical Exam Physical Exam: The patient appeared well nourished and normally developed. Vital signs as documented. Head exam is normocephalic atraumatic Neck is without JVD, thyromegaly, or carotid bruits. Lungs are clear to auscultation, no focal loss of breath sounds Cardiac exam, Rhythm is regular.. No murmurs, rubs or gallops. Abdominal exam reveals normal bowel sounds, soft non tender, no masses Extremities are nonedematous and both pedal pulses are present Neurologic exam is alert and oriented, Skin is with red king consistent with his respiratory mask on his cheeks he is a abrasion on his right thigh perhaps consistent with either a grounding pad from electrocautery or perhaps tape from a Lundberg catheter Psychologically is without concerns for anxiety or depression.. Results & Data Results & Data Vital Signs (Past 12 Hours) Vital Signs Temp Pulse Pulse Resp BP BP Pulse Ox 03/22/24 15:10 97.7 F 66 16 148/83 H 94 03/22/24 14:25 97.2 F L 67 17 144/83 H 94 03/22/24 14:15 66 19 152/83 H 93 03/22/24 14:05 87 18 144/81 H 94 03/22/24 13:55 91 H 16 150/92 H 93 03/22/24 13:45 94 H 16 162/85 H 95 03/22/24 13:38 97.0 F L 90 14 160/83 H 94 03/22/24 06:24 98.1 F 62 20 167/96 H 97 O2 Del Method O2 Flow Rate 03/22/24 15:10 Nasal Cannula 4 03/22/24 14:25 Nasal Cannula 4 03/22/24 14:15 Nasal Cannula 4 03/22/24 14:05 Nasal Cannula 4 03/22/24 13:55 Oxymask 4 03/22/24 13:45 Oxymask 4 03/22/24 13:38 Oxymask 6 03/22/24 06:24 Room Air Laboratory Results Reviewed [id number] glucoseelevated Reviewed op note EBL 320 PG Care Time/CCT Total # of Minutes Spent Total Time Spent with Patient: Total time spent is greater than 50% in coordination of care (as documented) at patient's floor/unit and/or counseling patient: Coding Level of Care Code 03956 SUB INP/OBS CARE 3/50MIN Diagnoses Degenerative spondylolisthesis M43.10 Diastolic dysfunction I51.89 Type 2 diabetes mellitus E11.9 Lower urinary tract symptoms (LUTS) R39.9
--- NOTE | 2024-03-22 15:45 | Fluoroscopy Report ---
INTRAOPERATIVE RADIOGRAPHS CLINICAL HISTORY: Lumbar spinal fusion surgery. Fluoro time: 159 seconds Ka,r: 128.72 mGy FINDINGS: 7 spot fluoroscopic views of the lumbar spine are presented. There has been discectomy at L 4-L5 with laminectomy and posterior fusion at this level. The orthopedic hardware appears intact. IMPRESSION: Intraoperative images from lumbar spinal fusion surgery as above. Electronically signed by: Rui Alicia M.D. 03/22/2024 3:44 PM
--- NOTE | 2024-03-22 16:05 | Operative Report ---
PG Post Operative Report Pre & Post Diagnosis Operation Date: 03/22/24 07:15 Pre-Op Diagnosis: Degenerative Spongylolisthesis, Lumbar Pain, Spinal Stenosis Post-Op Diagnosis: Degenerative Spongylolisthesis, Lumbar Pain, Spinal Stenosis I identified the patient and participated in the time-out.: Yes Procedure Operation Date: 03/22/24 07:15 Actual Procedures p L4-L5 Transforminal Lumbar Interbody Fusion with Posterior Instrumentation Fusion and Cage Placement, Spinal Cord Monitoring(Not Applicable) - Gagan Morejon MD Surgeon Gagan Morejon MD Sales Special Agent none Estimated Blood Loss 320 Findings Consistent with Post-Op Diagnosis Specimens none Description of Procedure 1. L4-5 posterior lumbar fusion (93447) 2. L4-5 posterior lumbar interbody fusion () 3. L4-5 posterior nonsegmental instrumentation, NuVasive reline (05720) 4. Insertion of intervertebral cage, TL X20 NuVasive 11 x 11 x 31 mm (65897) 5. Utilization of local autograft from laminectomy (03373) Patient was taken the operating room and after adequate anesthesia was carefully positioned prone on the Reymundo frame and checked for positioning. Lumbar spine underwent a preprepped, fluoroscopy was brought in and I marked for the area of the incision. Prep and drape was performed, I began the procedure midline incision taken down through the subcutaneous tissues and then onto either side of the spinous processes exposing the posterior L4-5 region for pedicle screw placement and cage placement. Once this was confirmed fluoroscopically, I cleared the appropriate structures for insertion of pedicle screws at L4 and L5 vertebral bodies followed by confirming location of the instrumentation and insertion using high-speed bur for the start point, gearshift probe followed by tapping and using monitoring and checked the process with each step. 6.5 millimeter screws from the NuVasive reline set were then inserted, 50 mm in length for both levels. Once these were confirmed in proper location via monitoring and fluoroscopy, I then moved ahead with the TLIF procedure. The right facet was then removed, and then after mobilizing epidural vessels, I was able to maneuver the L4 nerve root superiorly and then locate the disc protrusion in the foraminal region. This protrusion was then incised with an annulotomy and then I remove the disc material and then moved into the disc space with cleaning out the disc material in this region. Combination of different instruments were utilized to remove the disc material and cartilage from the endplates followed by going through trials selecting the size cage as noted. The process continued with identifying and treating small epidural vessels with a combination of bipolar cautery and Floseal. The discectomy was completed, products of the decompression and facetectomy were morselized into small pieces. After selecting the cage, this had fusion materials placed within, and then I placed additional fragments of the bone that was removed posteriorly into the disc space. I followed this with then insertion of the cage without issue with excellent position on AP and lateral views. This was expanded up to about 50% of its height and confirmed the location fluoroscopically. With this completed, any additional decompression was completed, and the rods were then selected. Setscrews were placed, I checked the overall alignment and made very minor adjustments followed by then torquing down the screws and rods. Final images were obtained, the operative site was then thoroughly irrigated followed by then vancomycin powder and local being injected. Deep layer was closed using 0 Vicryl sutures reattaching the supraspinous ligament followed by an additional layer of 0 Vicryl sutures and then 2-0 Vicryl sutures and mango for the skin. Sterile dressing was applied, patient tolerated procedure well was taken recovery room satisfactory condition. I attest to the content of the Intraoperative Record and any orders documented therein. Any exceptions are noted below.
[2024-03-22] MEDS ORDERED: glipiZIDE 5 MG TAB PO SCH (16:30)
[2024-03-22] MEDS ORDERED: metFORMIN HCL 500 MG TAB PO SCH (17:00)
[2024-03-22] MEDS: INSULIN ASPART PER UNIT CHARGE SC SCH (17:11)
[2024-03-22] MEDS: MAGNESIUM OXIDE 400 MG TAB PO SCH (19:57)
[2024-03-22] MEDS: ATORVASTATIN 40 MG TAB PO SCH (19:57)
[2024-03-22] MEDS: CHOLECALCIFEROL 125 MCG (5,000 UNITS) TAB PO SCH (19:57)
[2024-03-22] MEDS: ceFAZolin 1000MG 1,000 MG/7.5 ML SYR IV SCH (19:58)
[2024-03-22] MEDS: DOCUSATE SODIUM/SENNA 50/8.6MG TAB PO SCH (19:58)
[2024-03-22] MEDS ORDERED: TAMSULOSIN HCL 0.4 MG CAP PO SCH (21:00)
[2024-03-22] MEDS ORDERED: lisinopril 5 MG TAB PO SCH (21:00)
[2024-03-22] MEDS: PREGABALIN 75 MG CAP PO SCH (21:57)
[2024-03-23] MEDS: POLYETHYLENE (MIRALAX) 17 GM PACK PO SCH (05:15)
[2024-03-23] MEDS: ACETAMINOPHEN 500 MG TAB PO PRN (05:51)
[2024-03-23] MEDS: glipiZIDE 5 MG TAB PO SCH (08:33)
[2024-03-23] MEDS: METOPROLOL SUCC 50MG EXT REL TAB PO SCH (08:34)
[2024-03-23] MEDS: EMPAGLIFLOZIN 25 MG TAB PO SCH (08:34)
[2024-03-23] MEDS: ASPIRIN 81 MG ECTAB PO SCH (08:35)
[2024-03-23] MEDS: CEROVITE ADV FORMULA TAB PO SCH (08:35)
[2024-03-23] MEDS: FINASTERIDE 5 MG TAB PO SCH (08:35)
[2024-03-23] MEDS: CYANOCOBALAMIN (B-12) 500 MCG TABLET PO SCH (08:35)
--- NOTE | 2024-03-23 08:35 | Orthopedic Progress Note ---
Date of Service March 23, 2024 Subjective Patient reports that he has some incisional pain. He does report also that he can feel his feet better, he has better sensation on the plantar aspect. He still reports having some numbness and tingling in the lower extremities. Incision relatively unremarkable with minimal drainage. Plan: Patient commented that he noticed an odor with his urine we will send off a UA, otherwise we will have him mobilize with physical therapy as he was up this morning ambulating with a walker in the room when I visited. We will have him continue with physical therapy today and see how he is doing tomorrow. Review of Systems All systems reviewed & are unremarkable except as noted in HPI & below. Physical Exam . Results & Data Results & Data Laboratory Results . Diagnostic Findings . PG Care Time/CCT Total # of Minutes Spent Total Time Spent with Patient: Total time spent is greater than 50% in coordination of care (as documented) at patient's floor/unit and/or counseling patient: Coding Level of Care Code 33278 Post Operative Follow-Up
[2024-03-23] MEDS ORDERED: TORSEMIDE 10 MG TAB PO SCH (09:00)
[2024-03-23 09:02] LABS: Appearance Urine Cloudy (Clear); Bacteria Urine Automated None Seen (None Seen); Bilirubin Urine Negative (Negative); Blood Urine 2+ (Negative); Cast Urine Automated 0-2 /lpf (0-2); Color Urine Yellow; Epithelial Cell Urine Auto 0-2 /hpf (0-2); Glucose Urine UA 3+ (Negative); Ketones Urine Trace (Negative); Leukocyte Esterase Urine 1+ (Negative); Nitrite Urine Negative (Negative); Protein Urine Trace (Negative); Urobilinogen Urine Negative (Negative); WBC Urine Automated >50 /hpf (0-5)
[2024-03-23 10:18] LABS: Hematocrit (blood only) 41.6 % (42.0-52.0); Hemoglobin 13.3 g/dl (14.0-18.0); Mean Corpuscular Hemoglobin 27.5 pg (25.0-34.0); Mean Platelet Volume 11.5 fL (9.4-12.4); Platelet Count 173 K/uL (130-400); RDW Coefficient of Variation 14.3 % (11.5-14.5); Red Blood Count 4.84 M/uL (4.70-6.10); White Blood Count 10.44 K/ul (4.8-10.8)
[2024-03-23 10:33] LABS: Anion Gap 8 (3-11); Blood Urea Nitrogen 29 mg/dl (6-23); Calcium 8.5 mg/dl (8.6-10.3); Carbon Dioxide 26 mmol/L (21-32); Chloride 101 mmol/L (98-107); Creatinine Clr Calc Pharmacy 67.1 ml/min; Est GFR (African American) 67.9 ml/min; Est GFR (Non-African American) 58.6 ml/min; Glucose 211 mg/dl (70-99(Fasting)); Magnesium 2.2 mg/dl (1.7-2.4); Sodium 135 mmol/L (136-145)
--- NOTE | 2024-03-23 15:39 | Hospitalist Progress Note ---
Date of Service March 23, 2024 Assessment & Plan (1) Degenerative spondylolisthesis: Plan: Patient underwent L4-5 transformational lumbar interbody fusion with posterior instrumentation fusion and cage replacement by Dr. Carroll on 03/22/2024 (2) Diastolic dysfunction: Plan: History of heart failure preserved ejection fraction. Preoperative stress test on . Does have bifascicular block on the EKG. Patient is hemodynamically stable at this time typically taking torsemide lisinopril and metoprolol. metoprolol XL daily torsemide restart 03/23 lisinopril 03/24 (3) Type 2 diabetes mellitus: Plan: Last A1c was 7.4 takes empagliflozin glipizide and metformin. Metformin is held other medications are given and a loose insulin/scale be employed (4) Lower urinary tract symptoms (LUTS): Plan: Patient chronically takes tamsulosin and Proscar Plan pt is stable, medicine will sign off but chart check and be available for questions, may resume all home medications at discharge Admission and Anticipated Discharge Date Admission Date: March 22, 2024 Subjective Patient is doing well sitting in the chair back pain is controlled some worsening with movement able to ambulate distances with a walker Physical Exam Physical Exam: The patient appeared well nourished and normally developed. Vital signs as documented. Lungs are clear to auscultation, no focal loss of breath sounds Cardiac exam, Rhythm is regular.. No murmurs, rubs or gallops. Abdominal exam reveals normal bowel sounds, soft non tender, no masses Neurologic exam is alert and oriented, Results & Data Results & Data Vital Signs (Past 12 Hours) Vital Signs Temp Pulse Pulse Resp BP BP Pulse Ox 03/23/24 14:45 98.1 F 71 16 119/71 95 03/23/24 12:42 98.1 F 66 16 140/70 98 03/23/24 12:20 03/23/24 08:05 97.7 F 60 16 136/74 97 03/23/24 07:47 97.7 F 68 16 116/74 98 03/23/24 07:27 Pulse Ox O2 Del Method O2 Flow Rate O2 Flow Rate 03/23/24 14:45 Room Air 03/23/24 12:42 Nasal Cannula 2 03/23/24 12:20 95 0 03/23/24 08:05 Nasal Cannula 03/23/24 07:47 Nasal Cannula 03/23/24 07:27 Nasal Cannula 4 Laboratory Results Reviewed CBC reviewed chemistry PG Care Time/CCT Total # of Minutes Spent Total Time Spent with Patient: Total time spent is greater than 50% in coordination of care (as documented) at patient's floor/unit and/or counseling patient: Coding Level of Care Code 54154 SUB INP/OBS CARE 2/35MIN Diagnoses Degenerative spondylolisthesis M43.10 Diastolic dysfunction I51.89 Type 2 diabetes mellitus E11.9 Lower urinary tract symptoms (LUTS) R39.9
[2024-03-23] MEDS: TAMSULOSIN HCL 0.4 MG CAP PO SCH (21:45)
--- NOTE | 2024-03-24 08:04 | Orthopedic Progress Note ---
Date of Service March 24, 2024 Subjective Pt seen and examined, notes some incisional pain but right leg improved. Neuro intact, dressing with some drainage. Post op day 2: improved Plan: Pt willing to get home today, will DC if cleared by PT and hospitalist. Follow up in 2 weeks. Review of Systems All systems reviewed & are unremarkable except as noted in HPI & below. Physical Exam . Results & Data Results & Data Laboratory Results . Diagnostic Findings . PG Care Time/CCT Total # of Minutes Spent Total Time Spent with Patient: Total time spent is greater than 50% in coordination of care (as documented) at patient's floor/unit and/or counseling patient: Coding Level of Care Code 15805 Post Operative Follow-Up
[2024-03-24] MEDS: oxyCODONE/ACETAMINOPHEN 5mg/325mg TAB PO PRN (09:42)
--- NOTE | 2024-03-24 10:10 | Discharge Summary ---
Date of Service March 24, 2024 Admission HPI Per Admitting Provider 12/23/23: Patient returns status post his new lumbar MRI from December 15, his previous MRI was from 2019. He notes that the pregabalin was helpful, but he ran out of the prescription and did not refill it, the Celebrex also helps to some degree. In review his main symptomatology is pain and numbness and tingling in the anterior aspect of his distal thigh over the knee and then going anteriorly down to his foot. He also gets some low back pain, the symptoms were improved when he had injections placed around the right L4-5 foraminal region previously with injections working with pain management recently. Today I talked with the patient at length I did review his MRI with him and family member. I expressed to him that the radicular symptoms are coming from the findings as noted at L4-5, and are relatively unchanged. For this reason I think the patient would benefit from operative intervention as he has undergone treatment for this with several recent injections both interlaminar and extraforaminal without any lasting improvement of the symptoms were improved temporarily. I then went I reviewed with him the MRI findings in detail and then using a model went on to explain the surgical procedure. Due to its location I do not think the disc herniation could be accessed with a routine discectomy without removing a significant amount of facet. For this reason, when also taking to account he has degenerative spinal listhesis, I am recommending a procedure that would involve both fusion and decompression either directly or indirectly at L4-5. He expressed that he will not be able to do the surgery until early March, we will have him return in mid January, check on his symptoms at that time, and I will continue the pregabalin as it was providing him some improvement. At that time the 2 surgical procedures could either be a lateral cage placement with posterior instrumentation percutaneously and indirect decompression versus a PLIF/TLIF type approach on the right side with posterior instrumentation fusion, cage placement from the plan for TLIF. I briefly reviewed some of the risk complications hospital postoperative course, but will make a final decision when he returns in mid January before scheduling the surgery at some point in March. [facility] we will work to get him back and continue with the process. 02/01/24: Patient returns for follow-up, he has a right-sided foraminal disc herniation at L4-5 along with degenerative spondylolisthesis. He notes that the medicine he is taking which includes pregabalin and Celebrex has helped with the symptoms but he still has symptoms into his right toes. Today I reviewed the findings with the patient on the MRI once again, I did describe different surgical approaches but our plan will be to do a open procedure with placement of right-sided cage and removal of the disc fragment in the foraminal region, interbody cage, posterior instrumentation fusion. The risks in the hospital course were discussed, we will continue to monitor him relative to his cardiac clearance for the procedure in March. Relative to the leg length discrepancy 1/2 inch lift was given to him today, along with another prescription mailed to the orthotics specialist, he will be back prior to the surgery for any additional discussion. 02/29/24: Patient returns for follow-up regarding his upcoming surgery on March 22, L4-5 TLIF with posterior instrumentation fusion decompression. Patient reports that his symptoms continue with primarily right leg symptoms somewhat diffuse, and the low back pain. He did try the shoe lift and it was helping for a while but then he was starting to develop increasing symptoms. Today I reviewed with the patient and his the details of the surgery, hospital postoperative course and answered number questions that they had. At this time we will be moving ahead with the surgery he does have an upcoming appointment with a dentist, I also commented to him about stopping his Celebrex we can advance, they are in agreement with this plan. Admission Exam Per Admitting Provider 11/25/23: Exam reveals him to indicate pain lumbosacral junction, he can raise up on toes and heels without any obvious weakness. While sitting he does have 1/4 knee reflexes absent ankle reflexes, straight leg raise was negative on the left but positive on the right for developing leg pain. Nerve IV views lumbar spine taken for today's office AP lateral bends. Flexion- extension views reveals the patient had a plate discrepancy with the right higher than the left, there is some resultant left levoscoliosis, hip joints yet obtain appropriate space. On the lateral view regularly seen the patient has normal lumbar lordosis but there is degenerative spondylolisthesis at L4-5 grade 1. Review of MRI images of the lumbar spine from [facility] from November 17, 2021, this is my separate review, reveals the patient to have similar findings as noted on the radiographs, but of note is the fact that he is developing at least moderate canal stenosis at L4-5 due to the degenerative spondylolisthesis at the facet arthropathy. 02/29/24: No change in examination, positive femoral stretch test on the right. Principal Diagnosis Same as "Discharge Diagnosis" noted below under Discharge Instructions. Discharge Exam GENERAL: AA&Ox3, NAD. Pleasant, affect is calm. RESPIRATORY: Normal respiratory effort with no signs of distress. SKIN: [place], warm and dry. MS/EXTREMITY: Lumbar dressing intact w/ mild, stable drainage. + ankle dorsi/plantarflexion. NVI distally. Pt seen and examined, notes some incisional pain but right leg improved. Neuro intact, dressing with some drainage. Discharge Data Allergies Allergy/AdvReac Type Severity Reaction Status Date / Time quinine Allergy Intermediate "PETECHIAE" Verified 03/22/24 06:15 Consultations 03/22/24 13:40 Consult Hospitalist Routine Procedures Performed Operation Date: 03/22/24 07:15 Actual Procedures p L4-L5 Transforminal Lumbar Interbody Fusion with Posterior Instrumentation Fusion and Cage Placement, Spinal Cord Monitoring(Not Applicable) - Gagan Morejon MD Ordered Studies 03/22/24 07:15 FL lumbar spine 2-3V Routine Lumbar Spine X-Ray 03/22/24 07:15 INTRAOPERATIVE RADIOGRAPHS CLINICAL HISTORY: Lumbar spinal fusion surgery. Fluoro time: 159 seconds Ka,r: 128.72 mGy FINDINGS: 7 spot fluoroscopic views of the lumbar spine are presented. There has been discectomy at L4-L5 with laminectomy and posterior fusion at this level. The orthopedic hardware appears intact. IMPRESSION: Intraoperative images from lumbar spinal fusion surgery as above. Electronically signed by: Rui Alicia M.D. 03/22/2024 3:44 PM Laboratory Results - last 72 hr 03/22/24 03/22/24 03/22/24 06:04 06:06 13:41 WBC RBC Hgb Hct MCV MCH MCHC RDW Std Deviation RDW Coeff of Vamsi Plt Count MPV Sodium Potassium Chloride Carbon Dioxide Anion Gap BUN Creatinine Est Cr Clr Drug Dosing Est GFR ( Amer) Est GFR (Non-Af Amer) BUN/Creatinine Ratio Glucose POC Glucose 138 H 220 H Calcium Magnesium Urine Color Urine Appearance Urine pH Ur Specific [place] Urine Protein Urine Glucose (UA) Urine Ketones Urine Blood Urine Nitrite Urine Bilirubin Urine Urobilinogen Ur Leukocyte Esterase Urine WBC (Auto) Urine RBC (Auto) U Hyaline Cast (Auto) U Epithel Cells (Auto) Urine Bacteria (Auto) Blood Type O Positive Antibody Screen NEGATIVE 03/22/24 03/22/24 03/23/24 16:47 20:33 07:42 WBC RBC Hgb Hct MCV MCH MCHC RDW Std Deviation RDW Coeff of Vamsi Plt Count MPV Sodium Potassium Chloride Carbon Dioxide Anion Gap BUN Creatinine Est Cr Clr Drug Dosing Est GFR ( Amer) Est GFR (Non-Af Amer) BUN/Creatinine Ratio Glucose POC Glucose 181 H 229 H 159 H Calcium Magnesium Urine Color Urine Appearance Urine pH Ur Specific [place] Urine Protein Urine Glucose (UA) Urine Ketones Urine Blood Urine Nitrite Urine Bilirubin Urine Urobilinogen Ur Leukocyte Esterase Urine WBC (Auto) Urine RBC (Auto) U Hyaline Cast (Auto) U Epithel Cells (Auto) Urine Bacteria (Auto) Blood Type Antibody Screen 03/23/24 03/23/24 03/23/24 08:45 09:53 11:05 WBC 10.44 RBC 4.84 Hgb 13.3 L Hct 41.6 L MCV 86.0 MCH 27.5 MCHC 32.0 RDW Std Deviation 45.0 RDW Coeff of Vamsi 14.3 Plt Count 173 MPV 11.5 Sodium 135 L Potassium TNP 4.0 Chloride 101 Carbon Dioxide 26 Anion Gap 8 BUN 29 H Creatinine 1.21 Est Cr Clr Drug Dosing 67.1 Est GFR ( Amer) 67.9 Est GFR (Non-Af Amer) 58.6 BUN/Creatinine Ratio 24.0 H Glucose 211 H POC Glucose Calcium 8.5 L Magnesium 2.2 Urine Color Yellow Urine Appearance Cloudy A Urine pH 5.0 Ur Specific [place] 1.040 H Urine Protein Trace H Urine Glucose (UA) 3+ H Urine Ketones Trace H Urine Blood 2+ H Urine Nitrite Negative Urine Bilirubin Negative Urine Urobilinogen Negative Ur Leukocyte Esterase 1+ H Urine WBC (Auto) >50 H Urine RBC (Auto) 11-20 H U Hyaline Cast (Auto) 0-2 U Epithel Cells (Auto) 0-2 Urine Bacteria (Auto) None Seen Blood Type Antibody Screen 03/23/24 03/23/24 03/23/24 11:32 16:37 20:51 WBC RBC Hgb Hct MCV MCH MCHC RDW Std Deviation RDW Coeff of Vamsi Plt Count MPV Sodium Potassium Chloride Carbon Dioxide Anion Gap BUN Creatinine Est Cr Clr Drug Dosing Est GFR ( Amer) Est GFR (Non-Af Amer) BUN/Creatinine Ratio Glucose POC Glucose 128 H 133 H 181 H Calcium Magnesium Urine Color Urine Appearance Urine pH Ur Specific [place] Urine Protein Urine Glucose (UA) Urine Ketones Urine Blood Urine Nitrite Urine Bilirubin Urine Urobilinogen Ur Leukocyte Esterase Urine WBC (Auto) Urine RBC (Auto) U Hyaline Cast (Auto) U Epithel Cells (Auto) Urine Bacteria (Auto) Blood Type Antibody Screen 03/24/24 07:28 WBC RBC Hgb Hct MCV MCH MCHC RDW Std Deviation RDW Coeff of Vamsi Plt Count MPV Sodium Potassium Chloride Carbon Dioxide Anion Gap BUN Creatinine Est Cr Clr Drug Dosing Est GFR ( Amer) Est GFR (Non-Af Amer) BUN/Creatinine Ratio Glucose POC Glucose 140 H Calcium Magnesium Urine Color Urine Appearance Urine pH Ur Specific [place] Urine Protein Urine Glucose (UA) Urine Ketones Urine Blood Urine Nitrite Urine Bilirubin Urine Urobilinogen Ur Leukocyte Esterase Urine WBC (Auto) Urine RBC (Auto) U Hyaline Cast (Auto) U Epithel Cells (Auto) Urine Bacteria (Auto) Blood Type Antibody Screen Hospital Course (1) Spinal stenosis of lumbar region: (2) Lumbar pain: (3) Degenerative spondylolisthesis: (4) Status post lumbar surgery: Plan On March 22, 2024 Naveen arrived at [facility] operating room and underwent an L4-L5 Transforaminal Lumbar Interbody Fusion with Posterior Instrumentation Fusion and Cage Placement, Spinal Cord Monitoring without complications. Patient had general anesthesia for the procedure. He was stable in the PACU postoperatively, and so the patient was transferred to the general orthopedic floor in stable condition and he practiced early ambulation and eventually started onto aspirin 81 mg daily for DVT prophylaxis as appropriate. Patient's hospital course was uneventful. On postoperative day #1 and #2, patient's vital signs were stable and pain was well-controlled. Patient was able to participate well with physical/occupational therapy, performing the necessary ambulation and exercises. Patient was then discharged home in stable condition to self-care with assistance from his . Patient will follow-up with orthopedics (Dr. Morejon) in 2 weeks for postoperative care. Total Time Total Time Spent Total Time Spent (In Minutes): Total Time Spent with Patient: Total time spent is greater than 50% in coordination of care (as documented) at patient's floor/unit and/or counseling patient: Discharge Plan Discharge Items Patient Disposition: Home - Self-Care Reason For Visit: Degenerative Spongylolisthesis, Lumbar Pain, Spina Discharge Diagnosis: s/p lumbar spine surgery Activity: As commented below Activity Comment: No strenous activity Lifting: Wait until after follow-up appointment Bathing Comment: May shower on the 3rd day after surgery; wash with soap & water briefly Exercise/Sports: Wait until after follow-up appointment Weightbearing: Full weightbearing Non-emergency contact: Primary Care Provider and Surgeon Call non-emergency contact if: your wound has increased redness and your wound pain has increased Follow-up/Referrals: Gagan Morejon MD [Surgeon] - [facility] [Primary Care Provider] - Diet: Regular Addtl Attending Provider Instructions: You may briefly wash the incision and surgical site with soap and water on the 3rd day after surgery, then rinse clean and dry well with clean towel or cloth. Apply a new dry dressing as instructed. You may walk as normal, but no strenuous physical activity otherwise until further instructed. Pending Studies at Discharge: No Stand-Alone Forms: My [facility] [employer], Pain - Opioid Pain Management, Smoking Cessation Medications and DC Order Prescriptions: New oxycodone-acetaminophen 5-325 mg tablet 1 tab PO Q6H PRN (Reason: pain) Qty: 24 0RF Rx Instructions: con't Tx Continued magnesium oxide 400 mg magnesium capsule 400 mg PO HS glipizide 10 mg tablet extended release 24hr 10 mg PO BID Qty: 180 3RF metformin 1,000 mg tablet 1,000 mg PO BID Qty: 180 3RF Jardiance 25 mg tablet 25 mg PO QAM tamsulosin [Flomax] 0.4 mg capsule 0.4 mg PO QPM Qty: 90 3RF pregabalin 75 mg capsule 75 mg PO BID Qty: 60 2RF celecoxib 200 mg capsule 200 mg PO BID Qty: 60 2RF mecobalamin (vitamin B12) 1,000 mcg tablet,chewable 1,000 mcg PO QAM lisinopril 5 mg tablet 5 mg PO QPM atorvastatin 40 mg tablet 40 mg PO HS cholecalciferol (vitamin D3) [Vitamin D3] 5,000 unit Tablet 5,000 unit PO HS metoprolol succinate [Toprol XL] 100 mg Tablet Extended Release 24 Hr 100 mg PO QAM finasteride 5 mg Tablet 5 mg PO QAM vit A-vit C-vit [id number] [id number] Tablet 1 tab PO QAM torsemide 20 mg tablet 10 mg PO QAM Rx Instructions: May take 20 mg PRN aspirin 81 mg Capsule,Delayed Release(Dr/Ec) 81 mg PO QAM Discharge Orders: Discharge Order (Routine); Ordered 03/24/24 Ordered By: Carlos Mckeon/Other Patient Handouts: After Back Surgery: Going Home, Back Surg Daily Living Tips Admission Data Admit Date/Time: 03/22/24 13:35 Attending Provider: Gagan Morejon Admit Provider: Gagan Morejon Primary Care Provider: [facility] Other Providers: Ace Li
[2024-03-24] MEDS ORDERED: lisinopril 5 MG TAB PO SCH (21:00)
== END 2024-03-24 15:08 | disposition home or self-care (01) | DRG 454 ==
LOC: ASU 05:47 → 3E 13:35